=== PATIENT | male | born 1960 | race Caucasian/White ===

== ENCOUNTER 2017-09-24 18:41 | Emergency (ER) | payer OTHER ==
[2017-09-24] MEDS ORDERED: ONDANSETRON 4 MG/2 ML VIAL IVP STA (19:25)
[2017-09-24] MEDS ORDERED: SODIUM CHLORIDE 0.9% 1,000 ML IV ONE (19:25)
[2017-09-24] MEDS ORDERED: RX INFO: IV CONTRAST WAS GIVEN 1 EACH MISC MISCELLANE PRN (19:25)
--- NOTE | 2017-09-24 19:38 | ED ---
General Adult HPI - General Chief complaint: Abdominal Pain Stated complaint: Back Pain Time Seen by Provider: 09/24/17 19:09 Source: patient Mode of arrival: ambulatory Limitations: no limitations - History of Present Illness Initial comments: Patient is a 56-year-old male who presents with a chief complaint of back pain, abdominal pain, nausea, diarrhea for 3 weeks. The patient states that he has chronic back pain secondary to arthritis however this pain is different. The patient states that he goes to the bathroom and had loose stools about 3 times a day. He admits to seeing blood in his stool. He characterizes the pain as a dull but intense ache. He cannot identify any aggravating or alleviating factors. Patient states that his pain is better when he sleeps. He denies any fevers though he has admit that he aches up with wet bedsheets. The patient is a daily drinker. He states he drinks about a pint a day. Patient is also a heavy smoker. Patient's last colonoscopy was 6 years ago, and was reportedly normal at that time. - Related Data Home Medications Medication Instructions Recorded Confirmed Cyclobenzaprine [Flexeril] 10 mg PO HS 09/24/17 09/24/17 Levofloxacin [Levaquin] 500 mg PO HS 09/24/17 09/24/17 Previous Rx's Medication Instructions Recorded Dicyclomine [Bentyl] 20 mg PO QID #20 tablet 09/24/17 Allergies Allergy/AdvReac Type Severity Reaction Status Date / Time No Known Allergies Allergy Verified 09/24/17 19:06 Review of Systems ROS Statement: Those systems with pertinent positive or pertinent negative responses have been documented in the HPI. ROS Other: All systems not noted in ROS Statement are negative. Constitutional: Reports: weight change, night sweats Eyes: Denies: vision change ENT: Denies: ear pain, throat pain Respiratory: Reports: cough Cardiovascular: Denies: chest pain, palpitations Endocrine: Reports: fatigue Gastrointestinal: Reports: abdominal pain, nausea Genitourinary: Denies: dysuria, discharge Musculoskeletal: Reports: back pain Past Medical History Past Medical History: Osteoarthritis (OA) History of Any Multi-Drug Resistant Organisms: None Reported Past Surgical History: No Surgical Hx Reported, Joint Replacement Additional Past Surgical History / Comment(s): hip arthroscopy on knee Past Anesthesia/Blood Transfusion Reactions: No Reported Reaction Past Psychological History: No Psychological Hx Reported Smoking Status: Current every day smoker Past Alcohol Use History: Daily Past Drug Use History: None Reported - Past Family History Father Family Medical History: Cancer Additional Family Medical History / Comment(s): LUNG AND STOMACH CANCER Daughter(s) Family Medical History: Cancer Mother Family Medical History: Cancer Additional Family Medical History / Comment(s): LUNG General Exam Limitations: no limitations General appearance: alert, in no apparent distress Head exam: Present: atraumatic, normocephalic Eye exam: Present: normal appearance ENT exam: Present: normal exam Neck exam: Present: normal inspection Respiratory exam: Present: normal lung sounds bilaterally. Absent: wheezes Cardiovascular Exam: Present: regular rate, normal rhythm GI/Abdominal exam: Present: soft, tenderness, hyperactive bowel sounds. Absent : distended, guarding Rectal exam: Present: deferred Extremities exam: Present: normal inspection Back exam: Present: tenderness Neurological exam: Present: alert, oriented X3, normal gait Psychiatric exam: Present: normal affect, normal mood Skin exam: Present: warm, dry, intact Course Vital Signs 09/24/17 18:55 Temperature 98.1 F Pulse Rate 87 Respiratory 16 Rate Blood Pressure 112/53 O2 Sat by Pulse 97 Oximetry Medical Decision Making - Medical Decision Making Patient presents with chief complaint of abdominal pain, back pain, nausea, and diarrhea for 3 weeks. Patient admits to a 12 pound weight loss over the last year. On initial evaluation, vital signs are stable. Given patient's history and physical examination, there is concern for etiologies such as gallbladder pathology, pancreatitis, or bowel pathology. The patient will be sent for a computed tomography scan of the abdomen and pelvis. Basic abdominal labs were sent. We'll hold on lactate and blood cultures at this time given stable vital signs. EKG performed at 7:56 PM shows normal sinus rhythm with a rate of 82 bpm. EKG is otherwise nonspecific. 9:40 PM Lab evaluation of this patient is grossly unremarkable. CT evaluation of the abdomen and pelvis with IV contrast shows normal anatomy without evidence of acute intra-abdominal process. Chest x-ray shows no acute process. The results were discussed with the patient, he was instructed to follow-up with primary care or return to the emergency department if his symptoms worsen or change in anyway. Prescribed Bentyl for abdominal pain and instructed to continue taking his regular pain medications for back pain. - Lab Data Result diagrams: 09/24/17 19:36 09/24/17 19:36 Lab Results 09/24/17 09/24/17 09/24/17 Range/Units 19:36 19:36 19:36 WBC 7.4 (3.8-10.6) k/uL RBC 4.00 L (4.30-5.90) m/uL Hgb 14.3 (13.0-17.5) gm/dL Hct 42.1 (39.0-53.0) % MCV 105.2 H D (80.0-100.0) fL MCH 35.8 H (25.0-35.0) pg MCHC 34.0 (31.0-37.0) g/dL RDW 11.5 (11.5-15.5) % Plt Count 224 (150-450) k/uL Neutrophils % 56 % Lymphocytes % 31 % Monocytes % 8 % Eosinophils % 2 % Basophils % 1 % Neutrophils # 4.1 (1.3-7.7) k/uL Lymphocytes # 2.3 (1.0-4.8) k/uL Monocytes # 0.6 (0-1.0) k/uL Eosinophils # 0.1 (0-0.7) k/uL Basophils # 0.1 (0-0.2) k/uL Macrocytosis Slight Sodium 140 (137-145) mmol/L Potassium 3.6 (3.5-5.1) mmol/L Chloride 105 (98-107) mmol/L Carbon Dioxide 28 (22-30) mmol/L Anion Gap 7 mmol/L BUN 15 (9-20) mg/dL Creatinine 0.90 (0.66-1.25) mg/dL Est GFR (MDRD) Af Amer >60 (>60 ml/min/1.73 sqM) Est GFR (MDRD) Non-Af >60 (>60 ml/min/1.73 sqM) Glucose 115 H (74-99) mg/dL Calcium 9.7 (8.4-10.2) mg/dL Total Bilirubin 0.6 (0.2-1.3) mg/dL AST 26 (17-59) U/L ALT 26 (21-72) U/L Alkaline Phosphatase 62 (38-126) U/L Total Protein 7.0 (6.3-8.2) g/dL Albumin 4.1 (3.5-5.0) g/dL Lipase 62 (23-300) U/L Urine Color Yellow Urine Appearance Clear (Clear) Urine pH 6.0 (5.0-8.0) Ur Specific [place] 1.016 (1.001-1.035) Urine Protein Negative (Negative) Urine Glucose (UA) Negative (Negative) Urine Ketones Negative (Negative) Urine Blood Negative (Negative) Urine Nitrite Negative (Negative) Urine Bilirubin Negative (Negative) Urine Urobilinogen 2.0 (<2.0) mg/dL Ur Leukocyte Esterase Negative (Negative) Disposition Clinical Impression: Abdominal pain, Diarrhea Disposition: HOME SELF-CARE Condition: Good Instructions: Abdominal Pain (ED) Referrals: Chirag Howard MD [Primary Care Provider] - 1-2 days
[2017-09-24 19:58] LABS: Appearance,Urine Clear (Clear); Bilirubin,Urine Negative (Negative); Glucose,Urine (UA) Negative (Negative); Ketones,Urine Negative (Negative); Leukocyte Esterase,Urine Negative (Negative); Nitrite,Urine Negative (Negative); Protein,Urine Negative (Negative); Specific Gravity,Urine 1.016 (1.001-1.035); UA Billing (MACRO vs. MICRO) CHEM
[2017-09-24 19:59] LABS: Basophils # (A) 0.1 k/uL (0-0.2); Basophils % (A) 1 %; CH 36.1; CHCM 34.4; Eosinophils # (A) 0.1 k/uL (0-0.7); Eosinophils % (A) 2 %; HCT 42.1 % (39.0-53.0); HDW 2.12; HGB 14.3 gm/dL (13.0-17.5); Luc % (Auto) 3; Lymphocytes # (A) 2.3 k/uL (1.0-4.8); Lymphocytes % (A) 31 %; MCH 35.8 pg (25.0-35.0); Macrocytosis Slight; Mean Platelet Volume 6.6; Monocytes # (A) 0.6 k/uL (0-1.0); Monocytes % (A) 8 %; Neutrophils # (A) 4.1 k/uL (1.3-7.7); Neutrophils % (A) 56 %; RDW 11.5 % (11.5-15.5); WBC 7.4 k/uL (3.8-10.6); WBC (Perox) 7.03
[2017-09-24 20:08] LABS: MCV 105.2 fL (80.0-100.0)
[2017-09-24 20:15] LABS: ALT 26 U/L (21-72); AST 26 U/L (17-59); Alkaline Phosphatase 62 U/L (38-126); Anion Gap 7 mmol/L; Blood Urea Nitrogen 15 mg/dL (9-20); Calcium 9.7 mg/dL (8.4-10.2); Carbon Dioxide 28 mmol/L (22-30); Chloride 105 mmol/L (98-107); Glucose 115 mg/dL (74-99); Non-African American GFR(MDRD) >60 (>60 ml/min/1.73 sqM); Potassium 3.6 mmol/L (3.5-5.1); Sodium 140 mmol/L (137-145); Total Bilirubin 0.6 mg/dL (0.2-1.3)
--- NOTE | 2017-09-24 21:06 | XR ---
EXAMINATION TYPE: XR chest 2V DATE OF EXAM: 09/24/2017 COMPARISON: NONE HISTORY: Back pain TECHNIQUE: Frontal and lateral views of the chest are obtained. FINDINGS: Heart and mediastinum are normal. Lungs are clear. Diaphragm is normal. Bony thorax is int act. IMPRESSION: Normal chest
--- NOTE | 2017-09-24 21:17 | CT ---
EXAMINATION TYPE: CT abdomen pelvis w con DATE OF EXAM: 09/24/2017 COMPARISON: NONE HISTORY: Back pain, right flank pain and pelvic pain with gas and loose stools x [address] DLP: 402.20 mGycm Automated exposure control for dose reduction was used. TECHNIQUE: Helical acquisition of images was performed from the lung bases through the pelvis. CONTRAST: Performed without Oral Contrast and with IV Contrast, patient injected with 100 mL of Omnipaque 300. FINDINGS: Lung bases are clear. There is no pleural effusion. Heart size is normal. Liver spleen pancreas appear normal. Gallbladder is contracted. Bile ducts are not dilated. There is no adrenal mass. Kidneys show satisfactory contrast opacification. There is no hydronephrosi s. There is no retroperitoneal adenopathy. I see no intestinal wall thickening. There are no dilated loops. Bladder distends smoothly. There is a right hip prosthesis. There is no sign of appendicitis. There are spondylotic changes in the lumbar spine with moderate narrowing at L4-5 and L5-S1 discs. IMPRESSION: SPONDYLOTIC CHANGES IN THE LUMBAR SPINE. NO EVIDENCE OF RENAL MASS OR OBSTRUCTION. I DO NOT SEE A CAU SE FOR RIGHT FLANK PAIN.
[2017-09-24 22:07] VITALS: BP 124/64; PULSE 95; RESP 18; TEMP 97
== END 2017-09-24 22:05 | disposition home or self-care (01) ==
LOC: EC 18:41
DX: R19.7 Diarrhea, unspecified (principal); M54.9 Dorsalgia, unspecified; G89.29 Other chronic pain; M19.90 Unspecified osteoarthritis, unspecified site; F17.200 Nicotine dependence, unspecified, uncomplicated; Z79.899 Other long term (current) drug therapy
CPT/HCPCS: 99284; 96374; 96361; 36415; 93005; 80053; 87449; 83690; 85025; 81003; 71020; 74177; J2405; Q9967

== ENCOUNTER → 2019-03-06 | Day surgery (SDC) | payer OTHER ==
[2019-03-02 09:31] VITALS: BMI 22.6
[~2019-03-06] MED LIST: LACTATED RINGERS 1,000 ML IV ONE; LACTATED RINGERS 1,000 ML IV SCH; LIDOCAINE 1% 20 ML VIAL (10MG/ML) FOR IV START INTRADERMA PRN; LIDOCAINE 1% INJ 10MG/ML (20 ML MDV) ONE; PROPOFOL 10 MG/ML 20 ML VIAL IV ONE
[2019-03-06 11:15] VITALS: TEMP 97.7
--- NOTE | 2019-03-06 12:36 | P.PCN ---
Date of Procedure: 03/06/19 Procedure(s) Performed: Procedure: Total colonoscopy and biopsy. Preoperative diagnosis: Change in bowel habits. Postoperative diagnosis: Sigmoid diverticulosis with no evidence of acute diverticulitis, strictures, polyps or cancer. Biopsies obtained from the right colon to rule out microscopic colitis. Preparation: HalfLytely prep. Sedation: Was provided by anesthesia. Brief clinical history: The patient a 58-year-old male who is scheduled for this evaluation because of change in bowel habits with frequent bowel movements for the last year or so. He has occasional blood on the stools. His last colonoscopy was around 7 years ago. There is no history of abdominal pains or anemia. Procedure: With the patient on his left lateral decubitus position and after informed consent and adequate sedation, the perianal area was inspected and it did not show any fissures or fistulas. There were no masses felt on digital rectal examination. The Olympus CFH 190L video colonoscope was then inserted in the rectum in the usual fashion and advanced to the cecum. There were several diverticular orifices seen scattered in the sigmoid with no evidence of acute diverticulitis or strictures. The mucosa appeared healthy. No polyps or tumors were seen. I obtained biopsies from the right colon to rule out microscopic or collagenous colitis. I retroflexed the endoscope in the rectum before the endoscope was withdrawn. Low-grade internal hemorrhoids were noted with no evidence of bleeding. The patient tolerated the procedure well. Plan: The patient was reassured. Discussed dietary measures. Will await pathology results. For screening for colon cancer, I am recommending repeat exam in 10 years. He will follow up with you as planned and I will be happy to see in the office if his symptoms persist.
[2019-03-06 12:44] VITALS: BP 113/72; PULSE 66; RESP 18
== END | disposition home or self-care (01) ==
LOC: ORWHC2ENDO 10:59
DX: K57.30 Diverticulosis of large intestine without perforation or abscess without bleeding (principal); K64.8 Other hemorrhoids; F17.210 Nicotine dependence, cigarettes, uncomplicated; Z96.641 Presence of right artificial hip joint; J44.9 Chronic obstructive pulmonary disease, unspecified; M19.90 Unspecified osteoarthritis, unspecified site
CPT/HCPCS: 88305; 45380; J2001; J2704

== ENCOUNTER 2019-04-29 00:25 | Emergency (ER) | payer OTHER ==
[2019-04-29] MEDS ORDERED: MORPHINE SULFATE 4 MG/ML SYRINGE IVP STA (00:51)
[2019-04-29] MEDS ORDERED: ASPIRIN 81 MG PO STA (00:54)
[2019-04-29] MEDS ORDERED: SODIUM CHLORIDE 0.9% 1,000 ML IV STA (00:54)
--- NOTE | 2019-04-29 01:00 | ED ---
General Adult HPI - General Chief complaint: Chest Pain Stated complaint: chest pain Time Seen by Provider: 04/29/19 00:37 Source: patient, family Mode of arrival: ambulatory Limitations: no limitations - History of Present Illness Initial comments: Dictation was produced using [employer] dictation software. please excuse any grammatical, word or spelling errors. Chief Complaint: 58-year-old male presents with sharp chest pain. History of Present Illness: 58-year-old male. He states that he's been getting progressive chest pain since today. Patient is recently diagnosed COPD. Patient denies any cardiac disease. States that he began noticing some discomfort to his chest starting yesterday. States that he woke this morning his pain was slightly worse compared to the night before. Told today his symptoms have been more progressive. States that his pain is located to the epigastric substernal region. States that it's worse with deep inspiration and when lying flat. States that the pain is severe and sharp in nature. Denies any radiation to the shoulders or jaw. Does report that the pain is so severe it caused him to be diaphoretic. Patient feels slightly nauseous however no vomiting. Denies any diarrhea. The ROS documented in this emergency department record has been reviewed and confirmed by me. Those systems with pertinent positive or negative responses have been documented in the HPI. All other systems are other negative and/or noncontributory. PHYSICAL EXAM: General Impression: Alert and oriented x3, acute distress secondary to pain, diaphoretic HEENT: Normocephalic atraumatic, extra-ocular movements intact, pupils equal and reactive to light bilaterally, mucous membranes moist. Cardiovascular: Heart regular rate and rhythm, S1&S2 audible, no murmurs, rubs or gallops Chest: Lungs clear to auscultation bilaterally, no rhonchi, no wheeze, no rales Abdomen: Bowel sounds present, abdomen soft, non-tender, non-distended, no organomegaly Musculoskeletal: Pulses present and equal in all extremities, no peripheral edema Motor: no focal deficits noted Neurological: CN II-XII grossly intact, no focal motor or sensory deficits noted Skin: Intact with no visualized rashes ED course: 58-year-old male. He presents today with severe chest pain. Patient pain is atypical with slight typical features. Upon arrival shows blood pressure 90/54, heart rate of 107. Patient's history is consistent with pericarditis given that he has worsening pain that's more apparent when lying flat compared to when leaning forward. Patient however does have multiple cardiac risk factors including tobacco use and age. EKG was obtained showing ST segment elevations to inferior leads and the precordial leads. There is evidence of VT depression. Given the patient has risk factors and appears very uncomfortable patient case was discussed with Dr. Gardner. He will review the EKG see if he agrees that it's not a STEMI. Tcctc-[id number] bedside ultrasound did not reveal any pericardial effusion. Dr. Gardner reviewed EKG and agrees that patient's EKG suggestive of pericarditis instead of ST segment elevation [place].Laboratory evaluation obtained. CBC, coag panel unremarkable. D-dimer is 1. 46. Metabolic panel is unremarkable. Troponins negative. EtOH S is obtained given that patient had atypical chest pain and elevated d-dimer. No sick ingestion of PE or aortic dissection. He does not appear to be any pericardial effusion. Patient given morphine. Patient reports that his symptoms are nonexistent. Patient's clinical presentation consistent with pericarditis. At this point it is unclear what caused this given the patient denies any recent viral illness. Patient does not have a history of GI bleed or kidney disease. Patient is appropriate for NSAIDs. He is told that he should take 600 mg every 8 hours for 7-10 days. Patient given outpatient follow-up with cardiology for outpatient management pericarditis. - Related Data Home Medications Medication Instructions Recorded Confirmed No Known Home Medications 03/02/19 03/02/19 Allergies Allergy/AdvReac Type Severity Reaction Status Date / Time No Known Allergies Allergy Verified 03/02/19 09:15 Review of Systems ROS Statement: Those systems with pertinent positive or pertinent negative responses have been documented in the HPI. ROS Other: All systems not noted in ROS Statement are negative. Past Medical History Past Medical History: COPD, Osteoarthritis (OA), Pneumonia Additional Past Medical History / Comment(s): Blood in stool, frequent bowel movements 5-6 per day X last 1 to 1 1/2 yrs. Hx broncitis numerous times, pneumonia. History of Any Multi-Drug Resistant Organisms: None Reported Past Surgical History: Joint Replacement, Orthopedic Surgery Additional Past Surgical History / Comment(s): Right hip replacement, left knee surgery, vasectomy, colonoscopy. Past Anesthesia/Blood Transfusion Reactions: No Reported Reaction Past Psychological History: No Psychological Hx Reported Smoking Status: Current every day smoker Past Alcohol Use History: Daily Past Drug Use History: None Reported - Past Family History Father Family Medical History: Cancer Additional Family Medical History / Comment(s): LUNG AND STOMACH CANCER Daughter(s) Family Medical History: Cancer Additional Family Medical History / Comment(s): Hodgkins Mother Family Medical History: Cancer Additional Family Medical History / Comment(s): LUNG CANCER. General Exam Limitations: no limitations Course Vital Signs 04/29/19 04/29/19 04/29/19 00:27 00:55 01:16 Temperature 98.3 F Pulse Rate 107 H 77 Respiratory 19 24 20 Rate Blood Pressure 98/54 100/63 O2 Sat by Pulse 99 97 Oximetry 04/29/19 02:00 Temperature Pulse Rate 71 Respiratory 18 Rate Blood Pressure 95/67 O2 Sat by Pulse 98 Oximetry Medical Decision Making - Lab Data Result diagrams: 04/29/19 00:41 04/29/19 00:41 Lab Results 04/29/19 04/29/19 04/29/19 Range/Units 00:41 00:41 00:41 WBC 9.4 (3.8-10.6) k/uL RBC 4.03 L (4.30-5.90) m/uL Hgb 13.8 (13.0-17.5) gm/dL Hct 41.9 (39.0-53.0) % MCV 104.1 H (80.0-100.0) fL MCH 34.3 (25.0-35.0) pg MCHC 32.9 (31.0-37.0) g/dL RDW 12.2 (11.5-15.5) % Plt Count 257 (150-450) k/uL Neutrophils % 59 % Lymphocytes % 27 % Monocytes % 9 % Eosinophils % 2 % Basophils % 1 % Neutrophils # 5.5 (1.3-7.7) k/uL Lymphocytes # 2.5 (1.0-4.8) k/uL Monocytes # 0.8 (0-1.0) k/uL Eosinophils # 0.2 (0-0.7) k/uL Basophils # 0.1 (0-0.2) k/uL Macrocytosis Slight PT 9.4 (9.0-12.0) sec INR 0.9 (<1.2) APTT 26.5 (22.0-30.0) sec D-Dimer 1.46 H (<0.60) mg/L FEU Sodium 138 (137-145) mmol/L Potassium 4.1 (3.5-5.1) mmol/L Chloride 104 (98-107) mmol/L Carbon Dioxide 24 (22-30) mmol/L Anion Gap 10 mmol/L BUN 14 (9-20) mg/dL Creatinine 0.86 (0.66-1.25) mg/dL Est GFR (CKD-EPI)AfAm >90 (>60 ml/min/1.73 sqM) Est GFR (CKD-EPI)NonAf >90 (>60 ml/min/1.73 sqM) Glucose 96 (74-99) mg/dL Calcium 9.4 (8.4-10.2) mg/dL Magnesium 2.3 (1.6-2.3) mg/dL Total Bilirubin 0.6 (0.2-1.3) mg/dL AST 33 (17-59) U/L ALT 23 (21-72) U/L Alkaline Phosphatase 83 (38-126) U/L Troponin I (0.000-0.034) ng/mL Total Protein 7.3 (6.3-8.2) g/dL Albumin 4.5 (3.5-5.0) g/dL Lipase 84 (23-300) U/L 04/29/19 Range/Units 00:41 WBC (3.8-10.6) k/uL RBC (4.30-5.90) m/uL Hgb (13.0-17.5) gm/dL Hct (39.0-53.0) % MCV (80.0-100.0) fL MCH (25.0-35.0) pg MCHC (31.0-37.0) g/dL RDW (11.5-15.5) % Plt Count (150-450) k/uL Neutrophils % % Lymphocytes % % Monocytes % % Eosinophils % % Basophils % % Neutrophils # (1.3-7.7) k/uL Lymphocytes # (1.0-4.8) k/uL Monocytes # (0-1.0) k/uL Eosinophils # (0-0.7) k/uL Basophils # (0-0.2) k/uL Macrocytosis PT (9.0-12.0) sec INR (<1.2) APTT (22.0-30.0) sec D-Dimer (<0.60) mg/L FEU Sodium (137-145) mmol/L Potassium (3.5-5.1) mmol/L Chloride (98-107) mmol/L Carbon Dioxide (22-30) mmol/L Anion Gap mmol/L BUN (9-20) mg/dL Creatinine (0.66-1.25) mg/dL Est GFR (CKD-EPI)AfAm (>60 ml/min/1.73 sqM) Est GFR (CKD-EPI)NonAf (>60 ml/min/1.73 sqM) Glucose (74-99) mg/dL Calcium (8.4-10.2) mg/dL Magnesium (1.6-2.3) mg/dL Total Bilirubin (0.2-1.3) mg/dL AST (17-59) U/L ALT (21-72) U/L Alkaline Phosphatase (38-126) U/L Troponin I <0.012 (0.000-0.034) ng/mL Total Protein (6.3-8.2) g/dL Albumin (3.5-5.0) g/dL Lipase (23-300) U/L Disposition Clinical Impression: Pericarditis Disposition: HOME SELF-CARE Instructions (If sedation given, give patient instructions): Acute Pericarditis (ED) Additional Instructions: Ibuprofen 600mg every 8 hours for 7 to 10 days, followed by tapering during a period of 3 to 4 weeks Is patient prescribed a controlled substance at d/c from ED?: No Referrals: Javier Gardner MD [STAFF PHYSICIAN] - 1-2 days Time of Disposition: 03:06
[2019-04-29 01:05] LABS: Basophils # (A) 0.1 k/uL (0-0.2); Basophils % (A) 1 %; Eosinophils # (A) 0.2 k/uL (0-0.7); Eosinophils % (A) 2 %; HCT 41.9 % (39.0-53.0); HGB 13.8 gm/dL (13.0-17.5); Lymphocytes # (A) 2.5 k/uL (1.0-4.8); Lymphocytes % (A) 27 %; MCH 34.3 pg (25.0-35.0); MCHC 32.9 g/dL (31.0-37.0); MCV 104.1 fL (80.0-100.0); Macrocytosis Slight; Mean Platelet Volume 6.9; Monocytes # (A) 0.8 k/uL (0-1.0); Monocytes % (A) 9 %; Neutrophils # (A) 5.5 k/uL (1.3-7.7); Neutrophils % (A) 59 %; Platelet Count 257 k/uL (150-450); RBC 4.03 m/uL (4.30-5.90); RDW 12.2 % (11.5-15.5); WBC 9.4 k/uL (3.8-10.6)
--- NOTE | 2019-04-29 01:13 | XR ---
EXAM: XR Chest, 1 View CLINICAL HISTORY: ITS.REASON XR Reason: chest pain TECHNIQUE: Frontal view of the chest. COMPARISON: No relevant prior studies available. FINDINGS: Lungs: No consolidation. Pleural space: Unremarkable. No pneumothorax. Heart: Unremarkable. No cardiomegaly. Mediastinum: Unremarkable. Bones/joints: Unremarkable. IMPRESSION: No evidence of acute pulmonary disease
[2019-04-29 01:18] LABS: INR 0.9 (<1.2); Partial Thromboplastin Time 26.5 sec (22.0-30.0); Prothrombin Time 9.4 sec (9.0-12.0)
[2019-04-29 01:20] LABS: ALT 23 U/L (21-72); AST 33 U/L (17-59); African American GFR (CKD) >90 (>60 ml/min/1.73 sqM); Albumin 4.5 g/dL (3.5-5.0); Alkaline Phosphatase 83 U/L (38-126); Anion Gap 10 mmol/L; Blood Urea Nitrogen 14 mg/dL (9-20); Calcium 9.4 mg/dL (8.4-10.2); Carbon Dioxide 24 mmol/L (22-30); Chloride 104 mmol/L (98-107); Glucose 96 mg/dL (74-99); Lipase 84 U/L (23-300); Magnesium 2.3 mg/dL (1.6-2.3); Potassium 4.1 mmol/L (3.5-5.1); Sodium 138 mmol/L (137-145); Total Bilirubin 0.6 mg/dL (0.2-1.3); Total Protein 7.3 g/dL (6.3-8.2)
[2019-04-29 01:23] LABS: D-Dimer 1.46 mg/L FEU (<0.60)
[2019-04-29 02:11] VITALS: RESP 18
--- NOTE | 2019-04-29 02:49 | CT ---
EXAM: CT Angiography Chest With Intravenous Contrast CLINICAL HISTORY: ITS.REASON CT Reason: Pain TECHNIQUE: Axial computed tomographic angiography images of the chest with intravenous contrast using pulmonary embolism protocol. CTDI is 6 mGy and DLP is 298.8 mGy-cm. This CT exam was performed using one or more of the following dose reduction techniques: automated exposure control, adjustment of the mA and/or kV according to patient size, and/or use of iterative reconstruction technique. MIP reconstructed images were created and reviewed. COMPARISON: No relevant prior studies available. FINDINGS: Pulmonary arteries: No pulmonary embolism. Aorta: No dissection. No aneurysm. Lungs: Upper lobe emphysema. Scarring to the medial right upper lobe. Bronchial wall thickening suggesting bronchitis.. Pleural space: Unremarkable. No significant effusion. No pneumothorax. Heart: No significant pericardial effusion. Bones/joints: No acute fracture. No dislocation. Soft tissues: Unremarkable. Lymph nodes: Unremarkable. No enlarged lymph nodes. IMPRESSION: No PE or aortic dissection. Emphysema and bronchitis.
[2019-04-29] MEDS ORDERED: IBUPROFEN 800 MG TAB PO STA (03:04)
[2019-04-29 03:19] VITALS: BP 98/70; PULSE 70; TEMP 97
== END 2019-04-29 03:18 | disposition home or self-care (01) ==
LOC: EC 00:25
DX: I31.9 Disease of pericardium, unspecified (principal); R79.89 Other specified abnormal findings of blood chemistry; R11.0 Nausea; R61 Generalized hyperhidrosis; M19.90 Unspecified osteoarthritis, unspecified site; F17.200 Nicotine dependence, unspecified, uncomplicated; Z87.09 Personal history of other diseases of the respiratory system; Z87.01 Personal history of pneumonia (recurrent); Z96.641 Presence of right artificial hip joint
CPT/HCPCS: 36415; 93005; 85379; 80053; 83690; 83735; 84484; 85025; 85610; 85730; 71045; 71275; 99285; 96374; 96361 ×2; J2270; Q9967

== ENCOUNTER → 2020-07-23 | Outpatient (CLI) | payer OTHER ==
--- NOTE | 2020-07-23 08:32 | US ---
EXAMINATION TYPE: US carotid duplex BILAT DATE OF EXAM: 07/23/2020 COMPARISON: NONE CLINICAL HISTORY: 59-year-old male R42 Dizziness and giddiness. Pain in head and dizziness. TECHNIQUE: Carotid duplex ultrasound examination. Indirect Doppler criteria was utilized. FINDINGS: EXAM MEASUREMENTS: RIGHT: Peak Systolic Velocity (PSV) cm/sec ----- Right CCA: 94.8 ----- Right ICA: 123.0 ----- Right ECA: 105 ICA/CCA ratio: 1.2 RIGHT: End Diastole cm/sec ----- Right CCA: 26.6 ----- Right ICA: 42.9 ----- Right ECA: 23.6 LEFT: Peak Systolic Velocity (PSV) cm/sec ----- Left CCA: 133 ----- Left ICA: 105 ----- Left ECA: 81.5 ICA/CCA ratio: .8 LEFT: End Diastole cm/sec ----- Left CCA: 39 ----- Left ICA: 35.3 ----- Left ECA: 18.1 VERTEBRALS (direction of flow): Right Vertebral: Antegrade Left Vertebral: Antegrade Rhythm: Normal No significant stenosis seen IMPRESSION: No hemodynamically significant internal carotid artery stenosis on either side. Criteria for Assigning % of Stenosis / Diameter reduction (Estimation based on the indirect measurements of the internal carotid artery velocities (ICA PSV). 1. Normal (no stenosis)=ICA PSV < 125 cm/s: ratio < 2.0: ICA EDV<40 cm/s. 2. Less than 50% stenosis=ICA PSV < 125 cm/s: ratio < 2.0: ICA EDV<40 cm/s. 3. 50 to 69% stenosis=ICA PSV of 125 to 230 cm/s: ration 2.0 ? 4.0: ICA EDV 40-100 cm/s. 4. Greater than 70% stenosis to near occlusion= ICA PSV > 230 cm/s: ratio > 4.0: ICA EDV > 100 cm/s. 5. Near occlusion= ICA PSV velocities may be low or undetectable: variable ratio and ICA EDV. 6. Total occlusion=unable to detect flow.
== END | disposition home or self-care (01) ==
LOC: RADUSWWP 07:39
PROVIDERS: ATTEND Psychiatry & Neurology Neurology
DX: R42 Dizziness and giddiness (principal); H53.8 Other visual disturbances
CPT/HCPCS: 93880

== ENCOUNTER → 2020-07-23 | Outpatient (CLI) | payer OTHER | END | disposition home or self-care (01) | LOC: LABPAT 07:43 | PROVIDERS: ATTEND Orthopaedic Surgery | DX: Z01.812 Encounter for preprocedural laboratory examination (principal) | CPT/HCPCS: 87070 ==

== ENCOUNTER 2020-08-08 05:48 | Day surgery (SDC) | payer OTHER ==
[2020-08-05 11:22] VITALS: BMI 19.9
--- NOTE | 2020-08-07 15:56 | HP ---
HISTORY AND PHYSICAL DATE OF SURGERY: 08/08/2020 Cristian Farley is a 59-year-old patient seen with symptomatic left knee osteoarthritis. We discussed options for treatment. He elected to proceed with left total knee arthroplasty. Consent regarding the procedure was obtained. Medical clearance was provided by Dr. Howard. PAST MEDICAL HISTORY: Noncontributory. PAST SURGICAL HISTORY: Noncontributory. DAILY MEDICATIONS: Ibuprofen. ALLERGIES: NONE. SOCIAL HISTORY: He smokes one pack of cigarettes daily. PHYSICAL EVALUATION HIS LEFT KNEE: His range of motion is negative 4/5 to 120. Mild effusion. Tenderness along the medial and lateral joint lines. Crepitus along the medial and patellofemoral compartments. Pain with patellofemoral compression. Painless rotation of the hip. Distal neurovascular exam is intact. RADIOGRAPHS: Radiographs of the left knee reveal severe osteoarthritic changes. IMPRESSION: 1. Left knee osteoarthritis. 2. Tobacco use. PLAN: Left total knee arthroplasty. MMODL / IJN: [id number] /
[~2020-08-08 05:48] MED LIST changes: +ACETAMINOPHEN TAB 500 MG TAB PO ONE; +DEXAMETHASONE SOD PHOSPHATE 10 MG/ML 1 ML VIAL IV ONE; -LACTATED RINGERS 1,000 ML IV ONE; -LIDOCAINE 1% 20 ML VIAL (10MG/ML) FOR IV START INTRADERMA PRN; -LIDOCAINE 1% INJ 10MG/ML (20 ML MDV) ONE; +MELOXICAM 7.5 MG TAB PO ONE; +MIDAZOLAM 2 MG/2 ML VIAL IV PRN; +ONDANSETRON 4 MG/2 ML VIAL IVP ONE; -PROPOFOL 10 MG/ML 20 ML VIAL IV ONE; +TRANEXAMIC ACID 1,000 MG in SODIUM CHLORIDE 0.9% 100 ML IVPB ONE
[2020-08-08] MEDS ORDERED: ROPIVACAINE 246.25 MG, EPINEPHrine 0.5 MG, KETOROLAC 30 MG, cloNIDine HCL/PF 80 MCG, WA... MISCELLANE ONE ×5 (06:00)
[2020-08-08 06:16] VITALS: TEMP 98.1
[2020-08-08] MEDS ORDERED: LIDOCAINE 1% (10MG/ML) FOR IV START INTRADERMA ONE (06:20)
[2020-08-08 06:24] LABS: Glucose,Whole Blood 103 mg/dL (75-99)
[2020-08-08] MEDS ORDERED: MIDAZOLAM 2 MG/2 ML VIAL IV ONE (06:55)
[2020-08-08] MEDS ORDERED: fentaNYL (PF) 50 MCG/ML 2 ML AMP ONE (07:27)
[2020-08-08] MEDS ORDERED: LIDOCAINE 1% INJ 10MG/ML (20 ML MDV) ONE (07:27)
[2020-08-08] MEDS ORDERED: HYDROmorphone (PF) 1 MG/ML ONE (07:27)
[2020-08-08] MEDS ORDERED: TRANEXAMIC ACID 1,000 MG/10 ML VIAL ONE (07:27)
[2020-08-08] MEDS ORDERED: PROPOFOL 10 MG/ML 20 ML VIAL IV ONE (07:27)
[2020-08-08] MEDS ORDERED: SUCCINYLCHOLINE CHLORIDE 100 MG/5 ML SYR IV ONE (07:27)
[2020-08-08] MEDS ORDERED: SODIUM CHLORIDE 0.9% 100 ML BAG ONE (07:27)
[2020-08-08] MEDS ORDERED: ceFAZolin 1,000 MG in SODIUM CHLORIDE 0.9% 1,000 ML IRRIGATION ONE (08:01)
--- NOTE | 2020-08-08 08:08 | P.ANPRN ---
Procedure Note - Anesthesia - Nerve Block Performed Left Adductor Canal Infusion Time Out Performed: Yes Date of Procedure: 08/08/20 Procedure Start Time: 06:48 Procedure Stop Time: 07:01 Location of Patient: PreOp Indication: Acute Post-Operative Pain, Requested by Surgeon Sedation Type: Sedate with meaningful contact maintained Preparation: Sterile Prep, Sterile Dressing Position: Supine Catheter: Indwelling Needle Types: [place]unk Needle Gauge: 18 Ultrasound used to visualize needle placement: Yes Ultrasound used to observe medication spread: Yes Injectate: 0.5% Ropivacaine (see comment for volume) (20 ml + decadron 4 mg) Blood Aspirated: No Pain Paresthesia on Injection Noted: No Resistance on Injection: Normal Image Stored and Saved: Yes Events: Uneventful and Well Tolerated
[2020-08-08] MEDS ORDERED: ROPIVACAINE 0.2%-NS ON-Q PUMP 1,090 MG, EMPTY PAIN BALL 1 EACH MISCELLANE PRN ×2 (08:48→09:12)
[2020-08-08] MEDS ORDERED: LACTATED RINGERS 1,000 ML IV ONE ×2 (08:55→09:10)
[2020-08-08] MEDS ORDERED: HYDROcodone/APAP 5-325MG 1 EACH TAB PO PRN ×2 (09:10)
[2020-08-08] MEDS ORDERED: NALOXONE 0.4 MG/ML 1 ML VIAL IV PRN (09:10)
[2020-08-08] MEDS ORDERED: ONDANSETRON 4 MG/2 ML VIAL IVP PRN (09:10)
[2020-08-08] MEDS ORDERED: HYDROmorphone 0.5 MG/0.5 ML SYRINGE IVP PRN ×2 (09:10)
[2020-08-08] MEDS ORDERED: HYDROmorphone 1 MG/ML 1 ML SYRINGE IVP PRN (09:10)
--- NOTE | 2020-08-08 09:10 | P.OP ---
Date of Procedure: 08/08/20 Preoperative Diagnosis: Left knee osteoarthritis Postoperative Diagnosis: Left knee osteoarthritis Procedure(s) Performed: Left total knee arthroplasty Implants: 1. Depuy attune size 6 left cruciate retaining cemented femur 2. Depuy attune size 7 fixed bearing cemented tibial baseplate 3. Depuy attune size 6 fixed bearing cruciate retaining 8mm polythene tibial insert 4. Depuy attune 38 mm all polyethylene cemented patella Anesthesia: GETA, regional (Adductor canal catheter), local Surgeon: Alfonzo Yoon Saw Handle Assembler #1: Prasanna Ladd Estimated Blood Loss (ml): 30 Pathology: other (Bone) Condition: stable Disposition: PACU Indications for Procedure: 59-year-old patient seen with symptomatic left knee osteoarthritis. After treatment options were discussed, he elected to proceed with total knee arthroplasty. Operative Findings: See description of procedure Description of Procedure: Patient was taken to the operative suite after having an adductor canal catheter placed by the department of anesthesia. Patient underwent a general anesthetic by the department of anesthesia. Patient was given preoperative IV intake antibiotics and TXA. A well-padded tourniquet was placed about the left lower extremity. The lower extremity was then prepped and draped in the normal sterile orthopedic fashion. The extremity was elevated, a tourniquet was insufflated to 300. A standard anterior incision was made sharply through skin. Dissection was taken down through the subcutaneous soft tissues down to the extensor mechanism. A medial arthrotomy was performed, patella was everted and knee was flexed. There was advanced osteoarthritis noted. I introduced my distal intramedullary femoral drill. I then introduced the distal femoral cutting jig. Murphy MULLINS secured the cutting jig with 2 pins. I held retractors in position while Murphy MULLINS performed the distal femoral resection through the guide area we now removed her distal femoral cutting guide. We now placed our 4-in-1 femoral cutting block and positioned and it was secured with 2 pins by Murphy MULLINS while I held the block in position. The distal femoral finishing was now completed. A proximal tibial cutting guide was positioned. I held the guide in the appropriate position with both hands well Murphy MULLINS inserted stabilizing pins into the guide. Proximal tibial cut w as made. We now placed a trial femoral component into position, along with an appropriate size tibial tray and insert. We now took the knee through range of motion and had full extension good flexion and good overall soft tissue balance noted. The patella was everted and stabilized with 2 towel clips held by Murphy MULLINS while I performed a flush with patellar quad tendon utilizing a fresh sawblade. We templated the patella, appropriate drill holes were made. An appropriate trial patella was positioned, knee was taken through full range of motion with the patella tracking very nicely. The trial patella was removed. Drill holes were made through the femoral component. All trial components were removed after marking off the appropriate rotation of the tibia. Retractors were now positioned along the proximal tibia. An appropriate keel punch was made with the appropriate size tibial guide by myself on Murphy MULLINS assisted by holding retractors. At this point appropriate size implants were chosen and opened. The joint was irrigated copiously with pulse lavage mechanical irrigation. The posterior capsule was infiltrated with local analgesic. The wound was irrigated with pulse lavage mechanical irrigation. We mixed antibiotic methylmethacrylate. We placed the knee into flexion. We placed multiple retractors assisted by Murphy MULLINS to expose the proximal tibia. Once the methyl methacrylate was ready, the tibial component was cemented into place removing any excess methylmethacrylate form by both myself and Murphy MULLINS. The femoral component was cemented into place removing the removing any excess methylmethacrylate performed by both myself and Murphy MULLINS. We then inserted the appropriate size polyethylene tibial insert. We made sure that it was locked into position. We took the knee into full extension, and then back in a flexion making sure we had removed any excess methylmethacrylate. The patellar component was then cemented down and secured with clamp. Excess methylmethacrylate removed. We kept the knee in full extension, patellar clamp in position until methylmethacrylate had hardened. Once it had hardened the patellar clamp was removed. The knee was taken through full range of motion. The patella tracked nicely. There was good soft tissue balancing. The tourniquet was now released. Additional hemostasis was achieved via electrocautery. A second gram of TXA was given. The wound again was irrigated with pulse lavage mechanical irrigation. The superficial soft tissues were infiltrated local analgesic. The extensor mechanism was repaired with Vicryl. We checked the repair with range of motion and it was stable. The subcutaneous soft tissues were repaired with Vicryl in layers. The skin was approximated wit h pernio/Dermabond. Sterile dressings were applied followed by loose web roll and Sukhwinder bandage. The patient was transferred to a bed, and taken to recovery in stable and satisfactory condition. Murphy MULLINS assisted with this complex procedure.
[2020-08-08] MEDS: HYDROmorphone 0.5 MG/0.5 ML SYRINGE IVP PRN ×4 (09:37→10:40)
--- NOTE | 2020-08-08 10:14 | XR ---
EXAMINATION TYPE: XR knee limited LT DATE OF EXAM: 08/08/2020 COMPARISON: NONE TECHNIQUE: Two views submitted HISTORY: Post op FINDINGS: There is a prosthetic knee in near anatomic alignment. There is soft tissue edema and emphysema. IMPRESSION: 1. Postoperative change. Appears in near-anatomic alignment
[2020-08-08] MEDS ORDERED: HYDROcodone/APAP 5-325MG 1 EACH TAB PO ONE (11:45)
[2020-08-08 14:40] VITALS: RESP 18
[2020-08-08 14:41] VITALS: BP 122/77; PULSE 99
== END 2020-08-08 14:40 | disposition home health service (06) ==
LOC: OR 05:48
PROVIDERS: ATTEND Orthopaedic Surgery
DX: M17.12 Unilateral primary osteoarthritis, left knee (principal); K08.89 Other specified disorders of teeth and supporting structures; J44.9 Chronic obstructive pulmonary disease, unspecified; F17.210 Nicotine dependence, cigarettes, uncomplicated; Z79.1 Long term (current) use of non-steroidal anti-inflammatories (NSAID); Z79.899 Other long term (current) drug therapy; Z96.641 Presence of right artificial hip joint; Z98.890 Other specified postprocedural states
CPT/HCPCS: 97110; 97161; 64448; 76942; 88300; 73560; 27447; C1776; C1713; J2250; J0171; J1100; J0690 ×2; J2405; J2001; J3010; J1885; J1170 ×2; J2795 ×2; J0330; J2704; J0735

== ENCOUNTER → 2022-04-17 | Outpatient (CLI) | payer BC, OTHER ==
--- NOTE | 2022-04-19 21:04 | CT ---
EXAMINATION TYPE: CT cervical spine wo con CT DLP: 410.80 mGycm, Automated exposure control for dose reduction was used. DATE OF EXAM: 04/17/2022 4:42 PM COMPARISON: None. CLINICAL INDICATION:Male, 61 years old with history of M47.22 OTHER SPONDYLOSIS WITH RADICULOPATHY, C ervical Spondylosis TECHNIQUE: Axial CT images from the skull base to the inferior aspect of T2 we obtained without intra venous contrast. Coronal and sagittal reformatted images were also reviewed. FINDINGS: Fracture: None. Osseous structures: Multilevel degenerative disc disease changes with endplate spurring and disc oste ophyte complex's. Vertebral alignment: There is straightening of the cervical alignment. Spinal canal/Neural Foramina: mild narrowing of the spinal canal at C5-C6 secondary to disc osteophyt ic complex.. Facet joint uncovertebral joint arthropathy scattered throughout the cervical spine with varying degrees of neural foraminal stenosis. This is worse at C5-C6 and C6-C7 on the left with mild neural foraminal stenosis. Neck soft tissues: Prevertebral soft tissues are within normal limits. Other: The airway is patent. There is centrilobular and paraseptal emphysema changes in the lung apic es. Ossification of the nuchal ligament is present. Apical scarring of the lung apices. IMPRESSION: 1. No evidence of cervical spine fracture. 2. Mild multilevel degenerative disc disease with mild narrowing of the spinal canal at C5 and C6 sec ondary to disc osteophyte complex with mild left C5-C6 and C6-C7 neural foraminal stenosis. 3. Emphysema changes within the lungs.
== END | disposition home or self-care (01) ==
LOC: RADCTMAIN 16:19
PROVIDERS: ATTEND Orthopaedic Surgery
DX: M47.22 Other spondylosis with radiculopathy, cervical region (principal)
CPT/HCPCS: 72125

== ENCOUNTER → 2022-04-23 | Outpatient (CLI) | payer BC, OTHER ==
--- NOTE | 2022-04-23 17:38 | MR ---
EXAMINATION TYPE: MR cervical spine wo con DATE OF EXAM: 04/23/2022 COMPARISON: 07/09/2020 HISTORY: 61-year-old male M4 7.22, Neck pain and bilateral arm numbness, headaches. TECHNIQUE: Multiplanar, multisequence images of the cervical spine were acquired without contrast. FINDINGS: No craniocervical junction abnormality, predental space widening, or prevertebral soft tissue swellin g. There is moderate degenerative disc disease C5-C7 levels and mild to moderate C4-C5 where a degenerat ed, desiccated, narrowed, and bulging discs. There is extensive associated edematous Modic type II en dplate change. Reversal of the normal cervical lordosis. Degenerative grade 1 anterolisthesis of C3-C4, C4-C5. Multilevel hypertrophic facet and uncovertebral joint arthropathy. At C2-C3, no spinal canal or neuroforaminal stenosis. At C3-C4, hypertrophic facet and uncovertebral joint arthropathy with grade 1 anterolisthesis. Change s result in a moderate left neuroforaminal stenosis. No significant spinal canal stenosis. At C4-C5, there is advanced hypertrophic facet arthropathy, right greater than left with mild uncover tebral joint arthropathy. Disc osteophyte complex is present. Mild overall spinal canal stenosis with abutment and slight flattening of the ventral cord. Dorsal CSF signal is maintained. Changes result in moderate right neuroforaminal stenosis. At C5-C6, bilateral uncovertebral joint arthropathy and broad-based disc complex. Changes result in m ild to moderate spinal canal stenosis, slightly progressed from prior exam. There is abutment and sli ght flattening of the ventral cord but no rosas cord compression. Moderate to severe left and moderat e right neuroforaminal stenosis. At C6-C7, broad-based disc osteophyte complex with uncovertebral joint and facet arthropathy. Changes result in moderate left and moderate neural foraminal stenosis. No significant spinal canal stenosis . At C7-T1, hypertrophic facet arthropathy, left greater than right. Mild bilateral neuroforaminal narr owing. Normal course and signal intensity of the cervical spinal cord. IMPRESSION: 1. Moderate disc/endplate degenerative change, greatest from C5 through C7 levels with associated casa matous Modic type II endplate change. Changes have slightly progressed from 2020. 2. Multilevel hypertrophic facet and uncovertebral joint nephropathy. Degenerative grade 1 anterolist hesis C3-C4 and C4-C5. 3. Changes result in [id number] spinal canal stenosis at C5-C6, slightly progressed from prior exam. Abutment and slight flattening of the ventral cord at this level but no rosas cord compression. Mild overall spinal canal stenosis at C4-C5 is similar. 4. Variable bilateral neuroforaminal stenoses as outlined above, moderate to severe on the left at C5 -C6.
== END | disposition home or self-care (01) ==
LOC: RADMRIMAIN 12:16
PROVIDERS: ATTEND Orthopaedic Surgery
DX: M47.22 Other spondylosis with radiculopathy, cervical region (principal)
CPT/HCPCS: 72141

== ENCOUNTER → 2022-06-26 | Outpatient (CLI) | payer BC | END | disposition home or self-care (01) | LOC: LABPAT 09:09 | PROVIDERS: ATTEND Orthopaedic Surgery | DX: Z01.818 Encounter for other preprocedural examination (principal); M47.812 Spondylosis without myelopathy or radiculopathy, cervical region; R00.1 Bradycardia, unspecified | CPT/HCPCS: 87070; 93005 ==

== ENCOUNTER 2022-07-07 05:49 | Inpatient (IN) | payer BC ==
[2022-07-03 14:18] VITALS: BMI 20.3
[~2022-07-07 05:49] MED LIST changes: -ACETAMINOPHEN TAB 500 MG TAB PO ONE; +ACETAMINOPHEN TAB 500 MG TAB PO PRN; -DEXAMETHASONE SOD PHOSPHATE 10 MG/ML 1 ML VIAL IV ONE; +GABAPENTIN 300 MG CAP PO PRN; -LACTATED RINGERS 1,000 ML IV SCH; -MELOXICAM 7.5 MG TAB PO ONE; -MIDAZOLAM 2 MG/2 ML VIAL IV PRN; -ONDANSETRON 4 MG/2 ML VIAL IVP ONE; +ONDANSETRON 4 MG/2 ML VIAL IVP PRN; -TRANEXAMIC ACID 1,000 MG in SODIUM CHLORIDE 0.9% 100 ML IVPB ONE; +TRANEXAMIC ACID IN NACL,ISO-OS 1,000 MG in SALINE 1 100ML.BAG IVPB PRN
[2022-07-07] MEDS ORDERED: MIDAZOLAM 2 MG/2 ML VIAL IV PRN (05:56)
[2022-07-07] MEDS: LACTATED RINGERS 1,000 ML IV SCH (06:24)
--- NOTE | 2022-07-07 06:38 | P.HPOR ---
History of Present Illness H&P Date: 06/26/22 Chief Complaint: Neck pain, UE weakness [facility] History and Physical Date of :[birth year] Age: 61 year Height: 6' Weight: 140 lbs BP:124/70 BMI: 18.99 kg/m2 Occupation: Disabled VAS: 5 CHIEF COMPLAINT: Cervical pain DOI: Chronic DOS: None Duration of current treatment regiment: 1 year HISTORY: Xrays No new xrays taken in office Trauma or injury No Work-Related No Pain description aching, burning. Location posterior diffuse Activity Modification yes , unable to perform bending, lifting, twisting motions regarding the neck. Ambulation and standing gets progressively more difficult throughout the day. Hand Dominance right TREATMENTS COMPLETED: 6 weeks of PT completed? Month and Year of last PT date? in late 2020 Yes How many sessions? 10 Did it help? No Physician directed home exercise completed? Duration of HEP course: current yes , daily without improvements. Medications yes List: Motrin 800mg with temporary improvements. Alternative interventions Chiropractic: No Massage therapy: R.I.C.E: yes , daily without relief. Brace: No Injections No RFA: No SUBJECTIVE: Today the patient returns to the office for a recheck of his cervical spine. Mr. Farley returns to the office for a a pre-operative recheck of their cervical spine. Patient reports continued cervical pain with no known injury or trauma to indicate an exact onset of their symptoms. Overall he notes continued debility due to his ongoing symptoms In addition to their cervicalpain, they do report that it radiates into the right upper extremity , associated with numbness and tingling through the arm and weakness that is significantly impacting his ability to complete his daily tasks. Overall the patient has seen a progressive increase in symptoms since their onset. Mr. Farley symptoms are exacerbated with most ADL's, due to this they notes that it is increasingly difficult for Mr. Farley to complete many of their daily tasks. Patient is having moderate sleep disturbances as well due to their ongoing pain and associated symptoms. Regarding treatments, the patient has previously trialed all abovementioned treatment modalities without any relief of his ongoing symptoms. Patient denies trialing any other modalities at this time. For their symptoms, the patient has been taking Ibuprofen 800mg with moderate/temporary relief of his symptoms. Patient denies taking analgesics/anticoagulants/narcotics/GEMA-analogs. Otherwise the patient denies any f/c/sob/cp, no incision concerns, no bladder or bowel retention/incontinence, no perineal numbness/tingling, and ambulates independently. HPI: Mr. Farley last presented to the office on 04/08/2022 for a recheck of his cervical spine. Since the time of the last appointment the patient reports that he has seen no improvements to his symptoms. Patient continues to complain of severe pain about te cervical region radiating into the bilateral shoulders and right upper extremity. 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 Otherwise he notes that he has continued with the physician recommended home exercise program without improvements as well as Motrin 800mg daily with temporary relief. Overall he denies any significant changes to hi symptoms since the time of the last appointment. Patient denies ny f/c/sob/cp, no bladder or bowel issues, denies any genital numbness or tingling. Additionally, he does present to the office without the us e of any ambulatory aides but does have an antalgic gait, favoring the left lower extremity. Mr. Farley was last seen on 08/25/2021 regarding his cervical pain. Since the time of the last appointment the patient denies any improvements to his symptoms. Patient is taking Motrin 800mg for pain management without any effect but notes that he would like a refill of this as he has run out. Additionally, the patient notes that he is still smoking occasionally, but has cut back significantly since the time of the last appointment. Of note, the patient is planning on leaving for [place] soon and will return in March. At that time he would like to continue treatment but notes that he will not be around to continue care of his neck pain in the [facility]. Otherwise he denies any bladder or bowel issues, denies any genital numbness or tingling. Additionally, he does present to the office without the use of any ambulatory aides but does have an antalgic gait, favoring the left lower extremity. Mr. Farley was last seen on 06/18/2021 regarding his cervical spine. He notes that his pain and symptoms have not changed since his last appointment. Similarly to the prior visit, he was still complaining of upper extremity weakness and radiculopathy on the right side. He noted that his pain is currently a 2/10, taking Motrin daily for this with little effect. Of note, the patient reported that he occasionally does have difficulty with swallowing. He presented without the use of ambulatory aides. Patient was currently trying to stop smoking. Mr. Farley denied any issues with his bowels or incontinence at this time. He was otherwise doing well. 60-year-old male last presented on 04/23/2021 for complaints of cervical spine pain as well as right upper extremity weakness and radiculopathy. The patient stated this been going on for years however over the last 4-5 months is been getting worse. He complained of pain in his right upper extremity as well as numbness and tingling in the upper extremity, stating when he lays back and goes to sleep that it gets worse. Nothing seems to make it better he does rate the pain right now a 2 out of 10 but he did take Motrin. He takes Motrin daily for this. He does smoke about a pack a half a day of cigarettes at this time. He has seen Dr. Castro in the office who wanted injections the patient is very against these at this time. He denied any bowel bladder issues denies any perineal numbness or tingling denies any difficulty with fine motor skills or gait imbalance at that time. The patients' past social, medical, family, surgical history, as well as review of systems, have been reviewed. Please refer to the Neurosurgery History and Physical form that has been scanned in to our electronic medical record system. 16 points review of systems completed and as stated in HPI, all other systems reviewed are negative. Social History: Reviewed, see appropriate section of the chart for details. P3 Social History: Smoking: former smoker P3 Alcohol: socially drinks alcohol P3 Family History: Reviewed, see appropriate section of the chart for details. P2 Past Medical History: Reviewed, see appropriate section of the chart for details. S3Gisnlnp Medications: Rx: ibuprofen 800 mg tablet Ref: 0 PHYSICAL EXAMINATION:Exam repeatd as below General: Awake, alert, appropriate for age, in no acute distress. HEENT: No unusual neck masses around region of lateral neck triangle, thyroid, supraclavicular groove Heart: Regular rate and rhythm, normal S1, S2 and no murmur/gallop. Lungs: Clear to auscultation bilaterally with no use of accessory muscles. Extremities: Skin warm and dry without acute lesions, coloration, temperature, skin intact, no tenderness or erythema Integument: Hairy patches: ABSENT Dorsal skin dimples: ABSENT Cafe au lait spots: ABSENT Surgical incisions: NONE Palpation: Please see Pain drawing on Intake sheet for further detail. Midline spinal tenderness: No E6 Cervical Tenderness: Yes E6 Paralumbar tenderness: No E6 Parathoracic tenderness: No E6 Buttocks tenderness: No E6 Sacroilliac Tenderness: No POSTURAL and MUSCULO-SKELETAL EVALUATION: Coronal Balance: NEUTRAL Recumbent testing: Patient is able to lay flat on back Sagittal Balance: NEUTRAL Shoulder Profile: LEVEL Pelvic Girdle: LEVEL Neck ROM: RESTRICTED Lumbar ROM: UNRESTRICTED Shoulder ROM: Symmetrical Hip ROM: Symmetrical Knee ROM: Symmetrical Hands: Normal appearance, symmetrical Feet: Normal appearance, Symmetrical VASCULAR STATUS : LEFT RIGHT Wrist Pulses INTACT INTACT Pedal Pulses (Dors. pedis & post.tibialis) INTACT INTACT Color NORMAL NORMAL Edema Absent Absent NEUROLOGIC EXAMINATION: Mental Status:Awake and alert, fully oriented, with normal attention, concentration and memory, and fluent, appropriate speech. Cranial Nerves: I: Olfactory not tested. II: Visual acuity normal, no visual field deficit noted with confrontation. III,IV: Normal pupillary reflexes & intact extraocular movements without nystagmus. V,: Intact symmetrical facial sensation. VII: Intact symmetrical facial motor movement VIII: Hearing intact. IX,X: Intact gag, swallow, & normal voice. XI: Sternocleidomastoid, trapezius function intact. XII: Tongue midline with normal movements. L'hermitte's Sign: Negative / absent Spurling'Sign: Absent bilaterally. Cubital percussion test: Absent bilaterally. Valderrama-Tinel sign - Carpal region: Absent bilaterally. Straight Leg Raising: Absent bilaterally. Crossed straight leg raise: negative O8 MOTOR EXAM (0-5/5, N/T) UPPER EXTREMITY Shoulder Abduction Biceps Triceps Wrist Extension Hand Intrinsics Materials Specialist Right 5/5 4+/5 5/5 5/5 5/5 4+/5 Left 5/5 5/5 4+/5 5/5 5/5 5/5 LOWER EXTREMITY Hip Flexion Knee Extension Knee Flexion DF PF EHL FHL Right 5/5 5/5 5/5 5/5 5/5 5/5 5/5 Left 5/5 5/5 5/5 5/5 5/5 5/5 5/5 REFLEXES(0-4/2, NT)Upper ExtremityLower Extremity Right 2 2 Left 2 2 Pathological Reflexes RIGHT LEFT Valderrama's Present Absent Clonus Absent Absent Babinski Absent Absent # Indicates mechanical impairment Muscle appearance: Symmetrical, without signs of atrophy or dystrophy. Sensory system (0-4, N/T) Test type RU NAVIN RL LL Joint-Position 2 2 2 2 Vibration 2 2 2 2 Pain & LT sense 2 2 2 2 Dermatomal Deficit: None None None None Gait and Functional Evaluation: Ambulatory aids: Independent Romberg's test: Intact bilaterally Toe heel walk / heel-toe walk intact while maintaining satisfactory balance? yes Squatting/straightening w/o assistance to a min of 60 degree knee flexion? yes Single leg stance: intact Trendelenburg sign negative bilaterally Hand and finger dexterity intact bilaterally? No Disdiadochokinesis examination negative bilaterally? yes RADIOGRAPHIC STUDIES: XRay taken on 04/23/2021 of Cervical was reviewed by Dr. Perez and indicates: AP lateral flexion extension views of the cervical spine obtained and reviewed in the office today. This demonstrates C4 to C7 spondylosis which is severe with osteophytic formation almost complete disc space collapse. On flexion the patient does have a grade 1 anterolisthesis C4 on C5 which is noted this reduces with extension. Occipital cervical C1 2 joints appear stable he does have a particular was pasta kits which is noted. There are no fractures dislocations other lesions noted. MRI scan from 07/09/2020 of Cervical Spine: There is spondylosis noted from C4 to C7 with C4 to C7 stenosis due to broad- based disc bulges as well as disc herniation. There is right-sided foraminal stenosis at these levels which is noted as well which could account for patient's right upper extremity weakness and radiculopathy. There is no fracture or dislocation. Occipital cervical C1 [address] Cervical spine: IMages reviewed demonstate severe spondylosis from C4-7 with disc collapse, vacuum disc phenomena as well as osteophyte formation anterior and posterior on VB. This contributes to moderate to severe stenosis from C4-7 along with disc herniations, bulges, facet arthrosis. There is flattening of the normal lordosis due to these findings as well. No fractures noted. C0-1 and C1-2 are stable at this time. No lesions. IMPRESSION: It was my pleasure to have seen and examined Cristian. I reviewed the patient's clinical syndrome, physical findings, and imaging studies during the appointment today. It is my impression that the patient has a diagnosis of. 1. C4-7 spondylosis 2. C4-7 stenosis 3. RUE weakness with radiculopathy I outlined the natural course history without intervention and various interventional options. PLAN: Based on my findings I suggest the following course of action: -Advised patient to continue with supplements, health maintenance, and home exercise programs. Patient expressed understanding and will continue with these modalities. I discussed treatment options with the patient, including operative and non- operative options, and they have elected to proceed with the following surgical procedure: C4-C7 ACDF The indications, risks, benefits, and alternatives to surgery were discussed with the patient at length. Specifically (but not limited to) the risks of infection, stiffness, recurrence of symptoms, need for revision surgery, local numbness, neurovascular injury, and blood clots were discussed. The patient's questions were answered. The decision to proceed was made. Consent will be obtained for the procedure. Spine Surgery Risk Review Mr. Farley is presenting for evaluation of cervical pain. It was my pleasure to have seen and examined Mr. Farley. In our visit today we have had a chance to go over subjective complaints, physical examination findings and treatments including the natural course history without intervention and various interventional options. The patients imaging demonstrates: XRay taken on 04/23/2021 of Cervical was reviewed by Dr. Perez and indicates: AP lateral flexion extension views of the cervical spine obtained and reviewed in the office today. This demonstrates C4 to C7 spondylosis which is severe with osteophytic formation almost complete disc space collapse. On flexion the patient does have a grade 1 anterolisthesis C4 on C5 which is noted this reduces with extension. Occipital cervical C1 2 joints appear stable he does have a particular was pasta kits which is noted. There are no fractures dislocations other lesions noted. MRI scan from 07/09/2020 of Cervical Spine: There is spondylosis noted from C4 to C7 with C4 to C7 stenosis due to broad- based disc bulges as well as disc herniation. There is right-sided foraminal stenosis at these levels which is noted as well which could account for patient's right upper extremity weakness and radiculopathy. There is no fracture or dislocation. Occipital cervical C1 2 joints appear stable. On physical exam, Mr. Farley demonstrates right upper extremity radiculopathy with bilateral upper extremity weakness. Patient also demonstrates significantly restricted cervical range of motion. I have explained to the patient that as their condition progresses it will cause further neurological deficits and eventual paralysis. Based on the patients imaging, physical exam, and the rapid progression and disabling nature of their symptoms, at this time I recommend surgery in the form or a: C4-C7 ACDF. I discussed the risk and benefits of this procedure at length with Mr. Farley. The patient and his significant other agreed to considered pursuing the procedure abovementioned. Prior to surgery, she should follow up with her PCP (Cardio, ID, IM etc) for clearance. Questions were invited and answered, and the patient wishes to proceed as outlined below. Currently, I am recommendin. C4-C7 Anterior cervical discectomy and fusion 2.Follow up with PCP for surgical clearance 3.Review of surgical risks and benefits as well as an educational packet on the proposed surgical procedure. Risks: All surgical procedures come with inherent risks, including those related to positioning, anesthesia, intraoperative findings, and postoperative complications. It is important to understand that surgery does not come with any guarantee of a successful outcome as complications and adverse events are always possible. The patient was given a handout in office today discussing the surgical procedure and risks associated with the intervention, both of which were discussed with the patient. These risks include but are not limited to the following: * Experiencing same, different or even worse symptoms in back, neck, arms, or legs compared to before surgery. Requiring further surgery or other forms of treatment presently or at some time in the future at same or other levels of the intended spine surgery. On an extreme but fortunately relatively rare basis severe complication such as blindness, stroke, heart attack, temporary and/or permanent nerve injury, paralysis, coma, or may occur, sometimes without known explan ation. Surgical complications may include but are not limited to risk of infection, fluid accumulation in the surgical dissection site, including a seroma or hematoma, that requires additional surgery, wound drainage, bleeding, new numbness or weakness, vision changes/loss, spinal fluid leakage, non-healing and/or infected incision, headaches, difficulty or inability to swallow, hoarseness, hemopneumothorax, pneumothorax, impotence, retrograde ejaculation, vaginal dryness; injury to nerves, spinal cord, blood vessels, lymphatics or other vital organs (i.e., bowel injury, injury to the great vessels); heterotopic bone formation; complications related to the hardware such as screws, rods, cages including misplaced hardware, device failure, instrumentation at the wrong spine level, hardware fracture/breakage, or hardware loosening; vertebral failure of the spinal column above or below the newly placed hardware; retained surgical instrumentations or devices and the need for further surgery. * Medical risks of the planned spine surgery include but are not limited to generalized Infections to the whole body or local areas outside of the surgical site (sepsis), heart attack, bleeding, anaphylaxis, meningitis, seizure, epilepsy, hearing loss, burn gusman, laceration of the head or other areas of the body, bruising, hypersensitivity of the skin, bladder over distension; allergic reaction; shoulder injury related to positioning; fat, blood and air clots to other areas of the body like heart, lungs, brain; failure of internal organs such as lungs, kidneys, liver and excessive bleeding. If blood transfusions are necessary, note that transfusions may cause intolerance reactions such as anaphylaxis or other complex reactions. Despite best efforts, the results of spine surgery might not heal in terms of bone, soft tissues such as skin, fascia, ligaments, and joints. Additionally, in order to achieve best possible results, spine surgery may be carried out beyond the initially planned levels and involve decompression, fusion including insertion of hardware at levels other than the original intended area of surgical interest change some portions of the procedure in order to ensure the best possible outcomes. With spine surgery and spinal fusion, there are different off label uses of instrumentation (devices, implants and hardware) as well as biological substa nces (bone morphogenic proteins, demineralized bone matrix) as well as using extra bone from allograft sources (i.e. cadaver bone) or autograft (iliac crest bone, ribs, or the spine itself). The patient has been given information about these practices and their inherent risks and benefits. [facility] is an educational center that serves as a training facility for neurosurgical and orthopedic HOME IMPROVEMENT CONTRACTOR and Nursing students. Physician assistants are medically trained surgical providers who function in the outpatient, inpatient, and operating room setting under the direct supervision of the attending surgeon. [facility] has multiple operating rooms with single and overlapping rooms running daily. They currently function under the required guidelines as produced by the [facility] Finance Committee with regards to the overlapping rooms and will continue to comply with changes to this policy as they occur. The requirements include and are complied with as follows: (1) the critical portions of the overlapping rooms will not occur at the same time, (2) the attending physician will be physically present during the critical portions of the procedure and immediately available during the entire case, and (3) a back-up attending is designated should the primary attending not be immediately available. The patient has had a chance to review all the listed information, has been given print outs detailing this information, and has had all his/her questions answered to their satisfaction. It was my pleasure to have seen and examined Mr. Farley. In our visit today we have had a chance to go over my understanding of our patient's current condition, the natural course history without intervention and various interventional options. Questions were invited and answered, and the patient wishes to proceed as outlined above. I have seen and examined the patient for 25 minutes and we have spent more than 50% of the time in repeat and detailed counseling about the patient's condition, its natural course history with out and as much as can be predicted with surgery and re-review of various surgical treatment options. In conclusion, Mr. Farley and his partner requested we proceed with the above suggested surgery and are willing to accept risks and limitations of the suggested surgery as nature of the disease process and our best attempts at treatment for the condition. Thank you again for allowing us to be part of your patient's care. Please don't hesitate to contact me if you have any further questions. Signed and authenticated by: Jose Roberto Merchant [facility]imally [facility]vasive Sp[facility] [address] [address] Past Medical History Past Medical History: COPD, Osteoarthritis (OA), Pneumonia Additional Past Medical History / Comment(s): diverticulitis, hx bronchitis, herniated disk, degenerative disk disease History of Any Multi-Drug Resistant Organisms: None Reported Past Surgical History: Joint Replacement Additional Past Surgical History / Comment(s): Right hip replacement, left knee replacement, vasectomy, colonoscopy., left knee arthroscopy Past Anesthesia/Blood Transfusion Reactions: No Reported Reaction Smoking Status: Former smoker - Past Family History Father Family Medical History: Cancer Additional Family Medical History / Comment(s): LUNG AND STOMACH CANCER Daughter(s) Family Medical History: Cancer Additional Family Medical History / Comment(s): Hodgkins Mother Family Medical History: Cancer Additional Family Medical History / Comment(s): LUNG CANCER. Medications and Allergies Home Medications Medication Instructions Recorded Confirmed Type Ibuprofen 800 mg PO Q8H PRN 07/03/22 07/03/22 History Nicorette Gum (Dose Unknown) 1 piece gum PO DIRECTED PRN 07/03/22 07/07/22 History Allergies Allergy/AdvReac Type Severity Reaction Status Date / Time No Known Allergies Allergy Verified 07/03/22 14:07 Physical Examination Osteopathic Statement: *. No significant issues noted on an osteopathic structural exam other than those noted in the History and Physical/Consult.
[2022-07-07] MEDS ORDERED: HYDROmorphone 0.5 MG/0.5 ML SYRINGE IVP PRN ×2 (07:00→11:00)
[2022-07-07] MEDS ORDERED: SUCCINYLCHOLINE CHLORIDE 200 MG/10 ML VIAL IV ONE (07:25)
[2022-07-07] MEDS ORDERED: HYDROmorphone (PF) 1 MG/ML ONE (07:25)
[2022-07-07] MEDS ORDERED: KETAMINE 10 MG/ML 20 ML VIAL ONE (07:25)
[2022-07-07] MEDS ORDERED: fentaNYL (PF) 50 MCG/ML 2 ML AMP ONE (07:25)
[2022-07-07] MEDS ORDERED: DEXAMETHASONE SOD PHOSPHATE 10 MG/ML 1 ML VIAL ONE (07:25)
[2022-07-07] MEDS ORDERED: LIDOCAINE 4% LTA KIT (4 ML) TOPICAL ONE (07:25)
[2022-07-07] MEDS ORDERED: PROPOFOL 10 MG/ML 20 ML VIAL IV ONE (07:25)
[2022-07-07] MEDS ORDERED: TRANEXAMIC ACID IN NACL,ISO-OS 1,000 MG/100 ML BAG ONE (07:25)
[2022-07-07] MEDS ORDERED: MIDAZOLAM 2 MG/2 ML VIAL ONE (07:25)
[2022-07-07] MEDS ORDERED: LIDOCAINE 2% INJ 20 MG/ML (2 ML VIAL) ONE (07:25)
[2022-07-07] MEDS ORDERED: THROMBIN (BOVINE) 5,000 UNIT VIAL TOPICAL ONE (07:28)
[2022-07-07] MEDS ORDERED: GELATIN SPONGE,ABSORB (LARGE) 1 EACH SPONGE TOPICAL ONE (07:28)
[2022-07-07] MEDS ORDERED: LACTATED RINGERS 1,000 ML IV ONE (07:33)
--- NOTE | 2022-07-07 10:52 | P.PN ---
Progress Note - Text Progress Note Date: 07/07/22 History and Physical UPDATE I have seen and examined the patient and reviewed the history and physical. There appear to be no significant changes in the patient's current medical status as outlined in the current History and Physical.
--- NOTE | 2022-07-07 10:56 | FL ---
EXAMINATION TYPE: FL guidance operating room DATE OF EXAM: 07/07/2022 HISTORY: Fluoroscopy time 54 seconds of fluoroscopy provided. IMPRESSION: 1. Fluoroscopy time.
--- NOTE | 2022-07-07 10:57 | XR ---
EXAMINATION TYPE: XR cervical spine limited DATE OF EXAM: 07/07/2022 COMPARISON: NONE HISTORY: Postop TECHNIQUE: 11 intraoperative images submitted FINDINGS: Postsurgical changes noted. Exam limited by intraoperative technique and resolution. Sugges tion of an endotracheal tube. Radiopaque wiring seen posterior to the lower cervical spine. Some of t he images demonstrate hypertrophic degenerative changes spine with metallic overlying the mid to lowe r cervical spine likely part of a intraoperative localization. IMPRESSION: Intraoperative and postoperative images.
[2022-07-07] MEDS ORDERED: HYDROmorphone 1 MG/ML 1 ML SYRINGE IVP PRN (11:00)
[2022-07-07] MEDS ORDERED: HYDROcodone/APAP 5-325MG 1 EACH TAB PO PRN (11:00)
[2022-07-07] MEDS ORDERED: ONDANSETRON 4 MG/2 ML VIAL IVP PRN (11:00)
[2022-07-07] MEDS ORDERED: MAGNESIUM HYDROXIDE 2,400 MG/10 ML CUP PO PRN (11:00)
[2022-07-07] MEDS ORDERED: SENNOSIDES-DOCUSATE SODIUM 1 EACH TAB PO PRN (11:00)
[2022-07-07] MEDS ORDERED: CYCLOBENZAPRINE 5 MG TAB PO PRN (11:00)
[2022-07-07] MEDS ORDERED: diphenhydrAMINE 50 MG/ML 1 ML VIAL IVP ONE (12:22)
[2022-07-07] MEDS: ACETAMINOPHEN TAB 325 MG TAB PO SCH ×3 (16:28→23:32)
[2022-07-07] MEDS: HYDROcodone/APAP 7.5-325MG 1 EACH TAB PO PRN (16:34)
[2022-07-07] MEDS ORDERED: GABAPENTIN 300 MG CAP PO SCH (21:00)
[2022-07-08] MEDS: HYDROcodone/APAP 7.5-325MG 1 EACH TAB PO PRN (05:05)
--- NOTE | 2022-07-08 07:17 | CT ---
EXAMINATION TYPE: CT cervical spine wo con DATE OF EXAM: 07/08/2022 COMPARISON: 04/17/2022 HISTORY: post cervical fusion CT DLP: 404.1 mGycm CONTRAST: none CT of the cervical spine is performed in the axial plane at 2 mm thick sections. Reconstructed image s in the coronal, and sagittal plane are reviewed on the computer. No acute fractures are evident. Vertebral body alignment is normal. Disc heights are preserved. Disc spacers in place C4-5 C5-C6 C6-7. Anterior vertebral body cervical fusion is present through the C4-C7 levels. Vertebral body heights are preserved. No spinal canal stenosis is evident Some uncovertebral joint hypertrophy is present C3-4 level on the left with mild foraminal narrowing. Uncovertebral joint hypertrophy is present C5-6 with mild foraminal narrowing. Uncovertebral joint h ypertrophy is present on the left at C6-7 with moderate foraminal narrowing Postsurgical soft tissue air is present. IMPRESSIONS: 1. Interval anterior cervical fusion. 2. Chronic uncovertebral joint hypertrophy with foraminal narrowing greatest at the C 6/7 level.
[2022-07-08 07:45] VITALS: PULSE 85; RESP 18
[2022-07-08] MEDS: LACTATED RINGERS 1,000 ML IV SCH (07:46)
[2022-07-08] MEDS: ACETAMINOPHEN TAB 325 MG TAB PO SCH ×2 (07:46→12:09)
--- NOTE | 2022-07-08 08:48 | P.PN ---
Subjective Progress Note Date: 07/08/22 Principal diagnosis: Cervical Spondylosis Patient seen and examined at bedside. Patient states he did have a rough night due to pain and discomfort in the posterior cervical region. Medications will be reviewed. He notes that he is having some difficulty with swallowing, but tolerated breakfast well. He states he has been up and ambulate into restroom without difficulty. He denies any numbness tingling to bilateral upper extremities. Surgical dressing is clean dry and intact, FELIPE drain is patent with output of 80ml overnight. Informed patient we will be back this afternoon to assess drain output, if decreased patient may be discharged later today. Patient denies any fevers/chills, nausea/vomiting, or chest pain. Objective - Vital Signs Vital signs: Vital Signs Temp 97.9 F 07/08/22 07:44 Pulse 85 07/08/22 07:44 Resp 18 07/08/22 07:44 BP 114/63 07/08/22 07:44 Pulse Ox 95 07/08/22 07:44 FiO2 Intake & Output 07/07/22 07/08/22 07/08/22 18:59 06:59 18:59 Intake Total 2150 290 Output Total 250 50 Balance 1900 240 Weight 65.9 kg Intake: IV 2150 Intake, IV Titration 290 Amount Lactated Ringers 1,000 ml 240 @ 20 mls/hr IV .Q24H SANNA Rx#:[id number] ceFAZolin 2 gm In Sodium 50 Chloride 0.9% 50 ml @ 100 mls/hr IVPB Q8HR SANNA Rx# :[id number] Output: Drainage 10 50 Anterior Neck 10 50 Urine 190 Estimated Blood Loss 50 Other: # Voids 1 # Bowel Movements 0 - Exam Physical Examination General: The patient is awake and alert, in no acute distress Skin: Skin is warm and dry with no obvious rashes or lesions. Hairy patches absent, no dorsal skin dimples, no cafe au lait spots. Surgical incision to the anterior cervical region. FELIPE drain intact. Eye: Pupils are equal, round and reactive to light, extra-ocular movements are intact; there is normal conjunctiva bilaterally. Neck: The neck is supple, there is slight tenderness and ROM limited due to procedure. Cardiovascular: There is a regular rate and rhythm. No murmur, rub or gallop is appreciated. Respiratory: Lungs are clear to auscultation, respirations are non-labored, breath sounds are equal. Gastrointestinal: Soft, non-distended, non-tender abdomen . Back: There is no tenderness to palpation in the midline, paralumbar, parathoracic or buttocks region. There is no obvious deformity . Musculoskeletal: ROM limited secondary to pain and stiffness from surgical proc edure. Shoulder abduction 4/5, elbow flexors 4/5, wrist dorsiflexors 4/5. finger abductor 4/5, justowriter operator 4/5, hip flexor 5/5, knee flexor 5/5, ankle dorsiflexor 5/5, ankle plantarflexion 5/5 and extensor hallucis 5/5. Neurological: CN 2-12 intact. There are no obvious motor or sensory deficits. Movement and coordination equal and intact. Sensory exam to light touch intact C5-T1 and intact from L2-S1. Reflexes 2/4 in bilateral upper and lower extremities. Negative Hoffmans, babinski, and clonus signs. Psychiatric: Cooperative, appropriate mood & affect, normal judgment. Assessment and Plan Assessment: Postop day 1 anterior cervical discectomy and fusion C4-C7 Plan: Plan: -Appreciate consultant internship and team management. -Activity: Ambulate QID, OOB all meals, up and about, limit lifting bending twisting to less than 5 lbs. Use walker or cane if needed for stability. -Daily PT/OT, increase ambulation strength and balance. -Wear cervical collar until 2 week follow up. May take off to shower. -Pain control: Adequate at this time -Meds: reviewed -GI ppx: senna, Miralax -DVT PPX: OK to restart Heparin tonight -Hygiene: Shower today. Maintain dressing clean and dry. Meticulous cleaning after BMs away from the incision site -Drains: Maintain for now. DC later today pending out put and PT -Encourage IS 10x/hr -Dispo: Anticipate discharge home today or tomorrow. *I reviewed and discussed this case with my attending Dr. Mcclure, whom has reviewed this chart and films and is in agreement with assessment and plan of care as outlined above. I have personally seen and examined the patient, performed the documentation and the assessment and plan as written. Number of minutes spent on the visit: 20m.
[2022-07-08] MEDS ORDERED: HYDROcodone/APAP 10-325MG 1 EACH TAB PO PRN (08:51)
[2022-07-08] MEDS ORDERED: CYCLOBENZAPRINE 5 MG TAB PO SCH (09:00)
[2022-07-08] MEDS ORDERED: GABAPENTIN 300 MG CAP PO SCH (09:00)
[2022-07-08] MEDS ORDERED: NICOTINE 14MG/24HR PATCH TRANSDERM SCH (09:00)
--- NOTE | 2022-07-08 09:40 | P.OP ---
Date of Procedure: 07/07/22 Preoperative Diagnosis: 1. C4 to 7 spondylosis with stenosis 2. upper extremity radiculopathy 3. Upper extremity weakness 4. R and paresthesias Postoperative Diagnosis: 1. C4 to 7 spondylosis with stenosis 2. upper extremity radiculopathy 3. Upper extremity weakness 4. R and paresthesias Procedure(s) Performed: 1. Anterior right-sided Alonso-Herr approach to the cervical spine 2. C4-C5 anterior arthrodesis (73511) 3. C5-C6 anterior arthrodesis (09498) 4. C6-C7 anterior arthrodesis (37237) 5. C4-C5, C5-C6, C6-C7 insertion of biomechanical device (05340f2) 6. C4-C5, C5-C6, C6-C7 application of non-integrated anterior plate (51820a3) 7. Use of intraoperative microscope (83942) 8. Use of intraoperative neuro monitoring 9. Interpretation of intraoperative fluoroscopy less than 1 hour (66070) Implants: - choice spine [place] shark interbody cages 9 mm x 6 2 8 mm x 6 1 - [place] draining anterior plating system 14 mm 2; 13 mm 1 - autograft - for Anesthesia: GETA Surgeon: Jose Roberto Mcclure Diesel Engine I Pipe Fitter #1: Prasanna Ladd ( was present and assisted in all aspects of the case including positioning exposure arthrodesis closure and dressing application) Estimated Blood Loss (ml): 50 IV fluids (ml): 1,400 Urine output (ml): 300 Pathology: none sent Condition: stable Disposition: PACU Indications for Procedure: 61-year-old male who has been treated by the [facility] spine [place] for some time now with neck pain and upper extremity pain upper extremity weakness and paresthesias has gone through multiple different conservative treatments for his issues his MRI shows cervical spondylosis with stenosis. History of physical therapy home exercise program prescription medication [id number] medication topical medications quitting injections and none have alleviated his symptoms. We discussed at length different options for treatment and at this time the patient was elected to pursue surgical treatment for his issues. We discussed different surgical options and at this point if your cervical fusion was selected. We discussed risks and benefits at length as outlined at risk review. Patient was ready and willing to proceed with the procedure. Description of Procedure: The patient was seen and examined in the preoperative area. All preoperative protocols were followed. Informed consent was obtained risks and benefits of the procedure were discussed at length. Risks including bleeding infection damage to the surrounding tissue and risk of reoperation were discussed with the patient. Risk of anesthesia up to and including was a discussed with the patient. These are outlined in the risk review. They were willing to accept these risks and all of the risks of surgery. The patient was given a weight- based dose of antibiotics in the form of 2 g Ancef. The patient was seen and evaluated by the anesthesia team who deemed them fit for surgery. The site was marked, the patient was willing to proceed with the procedure. The patient was transferred to the operative suite by the Department of anesthesia. They were then drifted off to sleep by the department anesthesia and GETA was performed. The patient tolerated this well. [Julio catheter was placed by nursing staff, atraumatically]. Once confirmation of lines and ventilation the patient was transferred to a [prone Cristian table very carefully]. All bony prominences including wrists, elbows, axilla, chest, hips, and thighs, and feet were padded very well. Special attention was paid to the genitalia and these were padded accordingly. SCDs were placed on bilateral lower extremities and were connected. Arms were well padded and placed tucked at the patient's side well-padded. Shoulders were then gently taped to the table. Once in position, again we confirmed good ventilation capabilities and that lines were running appropriately. The patient's anterior cervical spine was then exposed. 1010s were placed outlining the incision site. Standard alcohol was used to clean the incision site and allowed to dry. C-arm was used to biomark the patient and confirm level for incision which was marked with a skin marker. Operative briefing was performed with all teams and everyone in agreement to proceed. The patient was then prepped and draped in a normal sterile fashion. Timeout was then performed and all parties were in agreement with the procedure to be performed. transverse skin incision was then made 4 cm over the previously bowel marked area on the right-hand side and a standard Alonso-Herr approach to the neck. Platysma layer was split in line with its fibers. Interval was exploited between the SCM and medial structures. Omohyoid was identified and gently mobilized. Central structures gently mobilized and so anterior cervical spine was reached. Blunt probe was then used to confirm levels under lateral fluoroscopic guidance once levels confirmed longissimus muscles were identified and elevated bilaterally subperiosteally. Anterior osteophytes were then removed using Kerrison and rongeur. This allowed for placement of retractor retractor was then placed under the longissimus muscles. Starting at the most difficult level at C4-C5 [place] pins were placed into C4 using lateral fluoroscopic guidance as well as C5. The disc was relieved with a Norm rounder and the distractor was placed and careful distraction was taken across the disc space. The operating microscope was then brought in for visualization complete discectomy was performed anteriorly using curettes as well as Kerrison rongeur. motors were run and they were stable.high-speed bur was then used to jonathan osteophytes anteriorly and posteriorly at C4-C5 pillow was identified and resected using 6 up-biting curette as well as 2 Kerrison bilateral foraminotomies was then performed. Meticulous hemostasis performed complete decompression confirmed disc space was then irrigated and endplates were confirmed to be clear we then sized for the appropriate sized spacer under lateral fluoroscopy. We then placed the final implant which was packed with autograft and bio 4 into position. AP confirmed central location. motors were run and were stable We then removed distraction and the pin was removed from C4 and bone wax placed and supported then selected a plate and sized it and the plate was then placed under lateral fluoroscopic guidance first by drilling the holes for the screws and then placing screws. The anterior locking mechanism was engaged and the plate was stable. We then turned our attention to the C5-C6 disc space distractor pin was placed in C6 under lateral fluoroscopic guidance and the disc space was resected using a Lempert rongeur careful distraction was then taken across the disc space. We then repeated the discectomy at C5-C6 removing anterior and posterior osteophytes with high-speed bur resecting PLL decompressing bilateral foramens. Jig is hemostasis performed with an sized for the appropriate sized spacer under lateral fluoroscopic guidance we then selected the final implant implant was packed and then impacted into place confirming good placement on AP and lateral films. We then sized and selected a plate for the area the plate holes were then drilled under lateral fluoroscopic guidance and then the plate was secured with screws. Anterior locking mechanism was engaged. We then irrigated the wound. motors were run and were stable. We then turned our attention to the C6-C7 disc space retractors were replaced we removed the John Day pin from C5 bone wax was placed into void and replaced in the C7 under lateral fluoroscopic guidance. We then removed disc material with Rui and careful distraction taken across the disc space. Anterior discectomy complete discectomy performed with high-speed bur as well as curettes. PLL identified and resected bilateral foraminotomies performed complete decompression of neural elements confirmed. Meticulous hemostasis performed. Disc space was irrigated and then spacers were trialed once appropriate size was obtained and this was then selected and impacted into place under lateral fluoroscopic guidance confirmed to be in good position in AP. Motors were run stable. A plate was then selected and sized it was then placed anteriorly screw holes were drilled and screws placed under lateral fluoroscopic guidance. We then irrigated the wound thoroughly with normal sterile saline and inspected each plate all locking mechanisms were engaged all screws in place. Meticulous hemostasis performed. Final AP and lateral imaging confirmed good placement of hardware as well as good reduction and decompression. We then again irrigated the wound we placed Surgicel deep within the wound inspected the area there is no injuries to drain was placed deep within the room wound and sewed in position. We then performed layered closure first in the platysmal fascia with 0 Vicryl in an subcu tissue with 3-0 Vicryl and subcuticular with 4-0 strata fix skin was then cleaned and dressed with skin glue and allowed to dry and then dressed with a sterile op to foam dressing. The patient was transferred back to their hospital bed atraumatically. Drain continued to hold suction and were in good position. Patient was then awakened and extubated by the department of anesthesia having tolerated the procedure very well with no complications. They were transferred to the postoperative care unit in stable condition.
[2022-07-08 11:11] LABS: Basophils # (A) 0.03 X 10*3/uL (0.00-0.10); Basophils % (A) 0.2 %; Eosinophils # (A) 0.01 X 10*3/uL (0.04-0.35); Eosinophils % (A) 0.1 %; HGB 12.2 g/dL (13.0-17.0); Immature Grans, Automated 0.4 %; Lymphocytes # (A) 1.98 X 10*3/uL (0.90-5.00); Lymphocytes % (A) 14.7 %; MCH 36.3 pg (27.0-32.0); MCHC 33.9 g/dL (32.0-37.0); MCV 107.1 fL (80.0-97.0); Mean Platelet Volume 9.2 fL (9.5-12.2); Monocytes # (A) 1.14 X 10*3/uL (0.20-1.00); Monocytes % (A) 8.5 %; NRBC Per 100 WBC 0 /100 WBCS (0.0-0.0); Neutrophils # (A) 10.25 X 10*3/uL (1.80-7.70); Neutrophils % (A) 76.1 %; Platelet Count 181 X 10*3/uL (140-440); RBC 3.36 X 10*6/uL (4.40-5.60); RDW 12.2 % (11.5-14.5); WBC 13.47 X 10*3/uL (4.50-10.00)
--- NOTE | 2022-07-08 13:41 | P.DS ---
Providers Date of admission: 07/07/22 05:49 Expected date of discharge: 07/08/22 Attending physician: Jose Roberto Mcclure DO Consults: 07/07/22 11:04 Consult Physician Routine Consulting Provider: Carmita Vásquez Reason/Comments: Medical Management Do you want consulting provider notified?: Yes Primary care physician: Anita Simmons [facility] Course: Hospital Course: The patient was evaluated preoperatively and found to have the diagnosis of Cervical spondylosis. They underwent appropriate preoperative care and were willing to undergo the intended procedure. They underwent a successful Anterior cervical C4-C5, C6-C7 discectomy and fusion, were recovered appropriately and sent to the floor. While on the floor they worked with physical therapy, occupational therapy and nursing to enhance their recovery experience. Their pain was well controlled through their stay and they were started on appropriate medications, DVT ppx modalities, activity and dietary needs. Daily labs were monitored closely, and transfusions were only used when necessary. Medicine as well as other consulting services have made their input and have helped with our team approach and multidisciplinary care. PT milestones have been met and passed and they have made the recommendation of home for this patient and treating providers agree with this care path. The patient will be discharged home with appropriate medications, instructions and follow-up information and in stable condition. Patient Condition at Discharge: Good Plan - Discharge Summary Discharge Rx Participant: No New Discharge Prescriptions: New cefaDROXiL [Duricef] 500 mg PO Q12HR 3 Days #6 cap Cyclobenzaprine [Flexeril] 5 mg PO TID #90 tablet Gabapentin 300 mg PO TID #90 cap HYDROcodone/APAP 10-325MG [[place] 10-325] 1 tab PO Q6HR PRN #56 tab PRN Reason: Pain No Action Ibuprofen 800 mg PO Q8H PRN PRN Reason: Pain Nicorette Gum (Dose Unknown) 1 piece gum PO DIRECTED PRN PRN Reason: Nicotine Cravings Discharge Medication List Ibuprofen 800 mg PO Q8H PRN 07/03/22 [History] Nicorette Gum (Dose Unknown) 1 piece gum PO DIRECTED PRN 07/03/22 [History] Cyclobenzaprine [Flexeril] 5 mg PO TID #90 tablet 07/08/22 [Rx] Gabapentin 300 mg PO TID #90 cap 07/08/22 [Rx] HYDROcodone/APAP 10-325MG [[place] 10-325] 1 tab PO Q6HR PRN #56 tab 07/08/22 [Rx] cefaDROXiL [Duricef] 500 mg PO Q12HR 3 Days #6 cap 07/08/22 [Rx] Follow up Appointment(s)/Referral(s): Jose Roberto Mcclure DO [Doctor of Osteopathic Medicine] - 1 Week Activity/Diet/Wound Care/Special Instructions: Spine Discharge and Recovery Instructions Date of Surgery: 07/07/22 Diagnosis: Cervical Spondylosis Procedure: Anterior Cervical C4-C5, C6-C7 discectomy and fusion Medications: See medication list All medication refills should be obtained through your primary care doctor or your clinic spine surgeon. Please discuss prescription refills at your follow up appointment. Do not call the hospital for medication refills. Dressing: Leave your dressing in place for a total of 5 days post operatively. Then you may remove your dressing and leave open to air. Keep the area clean and if not able to keep area clean, then cover with sterile gauze and tape. Showering: You may shower 3 days after your procedure allowing soap and water to run over incision. Do not scrub. Do not soak. Blot dry. Follow up: Please confirm a follow up appointment with your surgeon 3 weeks post operatively. Please make an appointment to follow up with your PCP in 1-2 weeks after surgery for evaluation 3 phase, 3-week plan POST OP WEEKS 1-3 1. Lifting/carrying/pushing/pulling limited to less than 5 pounds. 2. Do not sit for longer than 15 minutes at one time. Get up and walk around. Prolonged sitting is NOT advised. If you lay down, see if you can tolerate laying down on you front (belly side) 3. Walk for periods of 15 minutes = 1 mile but no longer; do it multiple times times each day. 4. Ice your low back after activity. POST OP WEEKS 3-6 1. Lifting limited to less than 20 pounds. 2. Do not sit for longer than 30 minutes at a time. Frequently change positions. Use a sit-to stand workstation or take frequent breaks from sitting if you have returned to work. 3. Walk for 30 minutes each day. If possible, do these three or more times a day POST OP WEEKS 6+ At your 6-week appointment we will give you a physical therapy referral to focus on a core stabilization and strengthening program. You should also work on leg & buttock strengthening, hamstring & quadriceps stretching, and continue a low impact aerobic activity program such as swimming, walking, or riding a stationary bicycle. During the initial 6 weeks after your surgery, you are at the highest risk of re-injuring your spine. You should generally avoid BLTs (bending, lifting and twisting combination motions) and follow the above guidelines to reduce the chance of reinjury. You can anticipate post op appointments in our office at approximately 3 weeks and 6 weeks after your surgery. INCISION CARE: If your incision is not draining you do NOT need to cover it with a dressing. Keep your incision clean, dry and intact. In most cases, we apply skin glue, jarrod or sutures to the incision at the time of surgery. This will be like a crust or have the appearance of a scab and will fall off in time on its own. The stitches or jarrod need to be removed at 3 weeks post op appointment. You may begin to shower 3 days after surgery (this allows the glue to tyler well). However, please avoid scrubbing the incision site or peeling off any of the skin glue. This will ensure optimal healing of your incision. Also, during this time avoid soaking the incision area in water - this includes swimming pools, hot tubs or baths. No ointments, lotions or oils on the incision until your surgeon allows. Leave jarrod, sutures or glue in place. Neurological dysfunction that comes on suddenly can also be a sign of a stroke. Below some common symptoms of a stroke are listed: B - balance difficulty such as sudden onset walking or leaning to one side - NEW E - eye problem such as sudden double vision or trouble seeing on one side - NEW F - Facial weakness or numbness on one side - NEW A - Arm or leg weakness or numbness on one side - NEW S - Slurred speech or difficulty with word finding - NEW T - Time is BRAIN! Call 911 as soon as you recognize these symptoms Diet: Consume a regular diet rich in vegetables and lean protein such as chicken or fish. You should consume in a ratio of approximately 20% fats|40% carbohydrates|40%protein. Vegetables, sweet potatoes, brown rice or quinoa are examples of good carbohydrates. Chips, white bread, cookies and sweets/sugar are examples of bad carbohydrates. Limit your bad carbs, go wild with good carbs. 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 (1) Get Active. Physical activity can help people lose weight, control high blood pressure and cholesterol, feel emotionally better, and sleep better. (2) Control Cholesterol. Avoid a diet high in saturated fat, trans fat, & cholesterol. Limit whole milk & cream, ice cream, butter, egg yolks, processed meats (like sausage and hot dogs), and fatty meats. Choose healthy foods that are low in saturated fat, trans fat and cholesterol which include: Fruits and vegetables, fiber rich grain products (like whole grain pasta and brown rice), lean meat such as chicken, fish, nuts, seeds, and legumes. (3) Eat Better. Eat small portions. Shop at the grocery with a list and do not stray from it. Tips for a healthy diet include: Limit sodium intake to less than 1500mg daily, avoid prepackaged, processed, and fast foods, choose a diet rich in fruits, vegetables, and whole grain, high fiber foods, and limit saturated & cholesterol in your diet. (4) Manage Blood Pressure. If you have high blood pressure, you should have a cuff at home so that you can check your blood pressure regularly. Be sure you have a good cuff. An arm one is generally better than a wrist one. Bring the cuff to a doctor's appointment to validate that the measurements that your cuff are taking are accurate. Take your blood pressure twice daily when you are sitting down and relaxing. Record the numbers in a log and bring this log with you to your doctors' appointments. (5) Lose Weight if your BMI is above 25. A healthy BMI is between 19-25. To calculate Your BMI, you may use a Standard BMI Calculator on the NIH BMI website: <www.nhlbi.nih.gov/guidelines/obesity/BMI/bmicalc.htm>. Weigh oneself daily. If you are overweight, set a goal to lose weight. A pound a week loss if needed is a good target. (6) Reduce Blood Sugar. Limit foods and liquids with "added sugars." (Added sugars include sucrose, fructose, glucose, maltose, dextrose, high fructose corn syrup, corn syrup, concentrated fruit juice and honey). (7) Stop Smoking. If you smoke, quitting smoking is one of the best things that you can do for your health. Smoking increases your risk of heart attack, stroke, and peripheral vascular disease, which is a build-up of plaque in your arteries. Please discard all the cigarettes and lighters in your house. Have a plan for what you will do when you have the urge to smoke. Direct and second- hand smoke shortens your life as well as the lives of your family, friends and others around you. For your health and the health of those around you, please consider quitting! Proper Bending Body Mechanics: Maintain a wide stance with one foot slightly in front of the other. Keep your back straight. Bend utilizing the strength in your hips and knees. Do not bend at the waist. Maintain the lifted object at your waist-level close to your body. Avoid lifting weight that causes immediately pain or pain anywhere in the body afterwards. Smoking/Nicotine If there was ever one thing that you could do to increase your overall health, decrease your risk of cardiovascular problems by about 39% the second you make the choice, it is to STOP SMOKING. Your body's most instant gratification is the second you stop smoking. We have all heard the studies, read the articles but it is true, smoking is extremely bad for your overall health, and moreover it is detrimental to your bone health. Nicotine, IN ANY FORM, kills bone cells, prevents your body from healing fractures, and significantly prolongs healing after surgery. In spine surgery specifically, it increases your risk of not healing your bones to create a fusion and increases your risk of having a revision surgery due to this up to 60%. I know it is hard. I know it feels impossible. But there are ways. Take control of your life. We are here to help you through it. And when you are ready, ask us and we can direct you to help if you desire. Use the START Plan to Quit Smoking (please visit the Helpguide.org website listed below for more information): S = Set a quit date. Choose a date within the next 2 weeks, so you have enough time to prepare without losing your motivation to quit. If you mainly smoke at work, quit on the weekend, so you have a few days to adjust to the change. T = Tell family, friends, and co-workers that you plan to quit. Let your friends and family in on your plan to quit smoking and tell them you need their support and encouragement to stop. Look for a quit ruddy who wants to stop smoking as well. You can help each other get through the rough times. A = Anticipate and plan for the challenges you'll face while quitting. Most people who begin smoking again do so within the first 3 months. You can help yourself make it through by preparing ahead for common challenges, such as nicotine withdrawal and cigarette cravings. R = Remove cigarettes and other tobacco products from your home, car, and work. Throw away all your cigarettes (no emergency pack!), lighters, ashtrays, and matches. Wash your clothes and freshen up anything that smells like smoke. Shampoo your car, clean your drapes and carpet, and steam your furniture. T = Talk to your doctor about getting help to quit. Your doctor can prescribe medication to help with withdrawal and suggest other alternatives. If you can't see a doctor, you can get many products over the counter at your local pharmacy or grocery store, including the nicotine patch, nicotine lozenges, and nicotine gum. Resources for Quitting Smoking: <https://www.[place].gov/documents/[facility]/Quit_Tobacco_Resources_for_patients_313 480_7.pdf> Supplementation: Take recommended dosages of Vitamin D and Calcium to help fortify your bones and help them to heal. See your health maintenance packet for dosages and r ecommended levels. DVT/VTE prophylaxis: You will be given compression stockings from the hospital. Wear these daily for the first two weeks after surgery. You may take them off at night. You may be prescribed a medication to help thin your blood. Take this as directed. If you are not prescribed this medication, early and frequent ambulation has been shown to be the best prophylaxis to deep vein thrombosis and sequelae related to this event. Discharge Disposition: HOME SELF-CARE
[2022-07-08 13:45] VITALS: BP 117/67; TEMP 98.5
--- NOTE | 2022-07-08 18:42 | P.CONS ---
History of Present Illness - History of Present Illness This is a pleasant 7 years old male with past medical history of osteoarthritis, COPD, was admitted under orthopedic team service for his cervical spondylosis. Patient underwent Anterior Cervical C4-C5, C6-C7 discectomy and fusion. Today is postoperative day #1. Patient is lying in bed comfortable feels thirsty, he has no dentures. He is fully awake and oriented, he was talking to his in the phone, he denies any specific complaint of weakness or numbness. Patient states improvement. Patient is hemodynamically stable. Labs are reviewed he has WBC of 13.4, hemoglobin 12.2. Cervical CT showing interval anteromedial cervical fusion with chronic degenerative joint disease. Review of Systems Review of systems CONSTITUTIONAL: No fever, no malaise, no fatigue. HEENT: No recent visual problems or hearing problems. Denied any sore throat. CARDIOVASCULAR: No orthopnea, PND, no palpitations, no syncope. PULMONARY: No shortness of breath, no cough, no hemoptysis. GASTROINTESTINAL: No diarrhea, no nausea, no vomiting, no abdominal pain. Normoactive bowel sounds. NEUROLOGICAL: No headaches, no weakness, no numbness. HEMATOLOGICAL: Denies any bleeding or petechiae. GENITOURINARY: Denies any burning micturition, frequency, or urgency. MUSCULOSKELETAL/RHEUMATOLOGICAL: Denies any joint pain, swelling, or any muscle pain. Except what is mentioned above ENDOCRINE: Denies any polyuria or polydipsia. Past Medical History Past Medical History: COPD, Osteoarthritis (OA), Pneumonia Additional Past Medical History / Comment(s): diverticulitis, hx bronchitis, herniated disk, degenerative disk disease History of Any Multi-Drug Resistant Organisms: None Reported Past Surgical History: Joint Replacement Additional Past Surgical History / Comment(s): Right hip replacement, left knee replacement, vasectomy, colonoscopy., left knee arthroscopy Past Anesthesia/Blood Transfusion Reactions: No Reported Reaction Smoking Status: Former smoker - Past Family History Father Family Medical History: Cancer Additional Family Medical History / Comment(s): LUNG AND STOMACH CANCER Daughter(s) Family Medical History: Cancer Additional Family Medical History / Comment(s): Hodgkins Mother Family Medical History: Cancer Additional Family Medical History / Comment(s): LUNG CANCER. Medications and Allergies Home Medications Medication Instructions Recorded Confirmed Type Ibuprofen 800 mg PO Q8H PRN 07/03/22 07/03/22 History Nicorette Gum (Dose Unknown) 1 piece gum PO DIRECTED PRN 07/03/22 07/07/22 History Cyclobenzaprine [Flexeril] 5 mg PO TID #90 tablet 07/08/22 Rx Gabapentin 300 mg PO TID #90 cap 07/08/22 Rx HYDROcodone/APAP 10-325MG [[place] 1 tab PO Q6HR PRN #56 tab 07/08/22 Rx 10-325] cefaDROXiL [Duricef] 500 mg PO Q12HR 3 Days #6 cap 07/08/22 Rx Allergies Allergy/AdvReac Type Severity Reaction Status Date / Time No Known Allergies Allergy Verified 07/03/22 14:07 Physical Exam Vitals: Vital Signs Temp Pulse Pulse Resp BP Pulse Ox 07/08/22 07:44 97.9 F 85 18 114/63 95 07/08/22 01:41 98.3 F 78 17 128/67 95 07/07/22 20:00 73 85 18 07/07/22 19:53 98 F 85 18 122/62 93 L 07/07/22 16:20 97.7 F 90 18 132/69 96 07/07/22 15:30 73 16 121/78 97 07/07/22 14:30 69 16 126/70 100 07/07/22 14:00 49 L 16 145/65 99 07/07/22 13:45 51 L 16 137/75 99 07/07/22 13:30 62 16 128/60 99 07/07/22 13:15 56 L 16 128/60 99 07/07/22 13:00 48 L 16 120/58 99 07/07/22 12:50 73 16 138/65 98 07/07/22 12:30 54 L 16 111/61 96 07/07/22 12:15 47 L 16 107/55 99 07/07/22 12:10 63 16 122/56 99 07/07/22 11:55 64 16 143/81 100 07/07/22 11:40 72 16 143/79 97 07/07/22 11:25 66 16 115/65 100 Intake and Output 07/07/22 07/08/22 07/08/22 22:59 06:59 14:59 Intake Total 300 290 296 Output Total 20 40 20 Balance 280 250 276 Intake: IV 300 Intake, IV Titration 290 Amount Lactated Ringers 1,000 ml 240 @ 20 mls/hr IV .Q24H SANNA Rx#:[id number] ceFAZolin 2 gm In Sodium 50 Chloride 0.9% 50 ml @ 100 mls/hr IVPB Q8HR SANNA Rx# :[id number] Oral 296 Output: Drainage 20 40 20 Anterior Neck 20 40 20 Other: # Voids 1 2 # Bowel Movements 0 0 Weight 65.9 kg GENERAL: The patient is alert and oriented x3, not in any acute distress. Well developed, well nourished. HEENT: Pupils are round and equally reacting to light. EOMI. No scleral icterus. No conjunctival pallor. Normocephalic, atraumatic. No pharyngeal erythema. No thyromegaly. CARDIOVASCULAR: S1 and S2 present. No murmurs, rubs, or gallops. PULMONARY: Chest is clear to auscultation, no wheezing or crackles. ABDOMEN: Soft, nontender, nondistended, normoactive bowel sounds. No palpable organomegaly. MUSCULOSKELETAL: No joint swelling or deformity. Cervical spine wound with dressing in a Place, rest of exam is deferred to surgery team EXTREMITIES: No cyanosis, clubbing, or pedal edema. NEUROLOGICAL: Gross neurological examination did not reveal any focal deficits. SKIN: No rashes. no petechiae. Results CBC & Chem 7: 07/08/22 06:33 Labs: Abnormal Lab Results - Last 24 Hours (Table) 07/08/22 Range/Units 06:33 WBC 13.47 H (4.50-10.00) X 10*3/uL RBC 3.36 L (4.40-5.60) X 10*6/uL Hgb 12.2 L (13.0-17.0) g/dL Hct 36.0 L (39.6-50.0) % MCV 107.1 H (80.0-97.0) fL MCH 36.3 H (27.0-32.0) pg MPV 9.2 L (9.5-12.2) fL Immature Gran # 0.06 H (0.00-0.04) X 10*3/uL Neutrophils # 10.25 H (1.80-7.70) X 10*3/uL Monocytes # 1.14 H (0.20-1.00) X 10*3/uL Eosinophils # 0.01 L (0.04-0.35) X 10*3/uL Assessment and Plan Assessment: Cervical spondylosis status post anterior Cervical C4-C5, C6-C7 discectomy and f usion. Hypertension COPD, not an active issue History of osteoarthritis Plan: This is a pleasant 61 years old male who presents for his cervical spondylosis status post fusion and discectomy Continue with postop care per primary team Continue with pain management and DVT prophylaxis per primary team Glucose controlled Patient tolerated that well Patient denies specific weakness Continue with DVT prophylaxis as per surgery team Patient was instructed to follow up with PCP in one week after discharge and he agrees. Patient has contact information Thank you for consulting us
== END 2022-07-08 14:31 | disposition home or self-care (01) | DRG 472 ==
LOC: 2ORMAIN 05:49 → 4SSUR 15:46
PROVIDERS: ADMIT Orthopaedic Surgery; ATTEND Orthopaedic Surgery
PROC: 0RG20A0 Fusion of 2 or more Cervical Vertebral Joints with Interbody Fusion Device, Anterior Approach, Anterior Column, Open Approach (ICD-10-PCS; 2022-07-07)
PROC: 01N10ZZ Release Cervical Nerve, Open Approach (ICD-10-PCS; 2022-07-07)
PROC: 4A11X4G Monitoring of Peripheral Nervous Electrical Activity, Intraoperative, External Approach (ICD-10-PCS; 2022-07-07)
PROC: 0RG2070 Fusion of 2 or more Cervical Vertebral Joints with Autologous Tissue Substitute, Anterior Approach, Anterior Column, Open Approach (ICD-10-PCS; principal; 2022-07-07 07:30)
DX: M47.22 Other spondylosis with radiculopathy, cervical region (principal); M48.52XA Collapsed vertebra, not elsewhere classified, cervical region, initial encounter for fracture; I10 Essential (primary) hypertension; J44.9 Chronic obstructive pulmonary disease, unspecified; R53.81 Other malaise; G47.8 Other sleep disorders; R13.10 Dysphagia, unspecified; M25.78 Osteophyte, vertebrae; M43.12 Spondylolisthesis, cervical region; M48.02 Spinal stenosis, cervical region; Z96.652 Presence of left artificial knee joint; Z96.641 Presence of right artificial hip joint; Z87.01 Personal history of pneumonia (recurrent); Z87.19 Personal history of other diseases of the digestive system; Z98.52 Vasectomy status; Z98.890 Other specified postprocedural states; Z80.0 Family history of malignant neoplasm of digestive organs; Z80.7 Family history of other malignant neoplasms of lymphoid, hematopoietic and related tissues; Z80.1 Family history of malignant neoplasm of trachea, bronchus and lung; Z87.891 Personal history of nicotine dependence; Z79.899 Other long term (current) drug therapy; Z79.891 Long term (current) use of opiate analgesic
CPT/HCPCS: 72040; 72125; 85025; 86850; 86900; 86901

== ENCOUNTER → 2023-06-29 | Outpatient (CLI) | payer BC, MEDICARE ==
--- NOTE | 2023-06-29 14:24 | CTL ---
EXAMINATION TYPE: CT Low Dose Lung DATE OF EXAM ORDERED: 06/29/2023 HISTORY: J44.9 CHRONIC OBSTRUCTIVE PULMONARY DISEASE, UNSPE. Lung cancer screening CT DLP: 71.[address] CTDI: 1.8 mGy Automated exposure control for dose reduction was used. SCREENING VISIT: First screening visit COMPARISON: Chest radiograph 06/26/2022 TECHNIQUE: Low dose computed tomography scan was performed through the chest at 1 mm thick sections a nd reconstructed images in multiple planes at 1 mm and [address] DIAGNOSTIC QUALITY: Satisfactory FINDINGS: LUNG NODULES: No clinically significant pulmonary nodules. LUNGS: COPD: Severity: Mild Fibrosis: Severity: None Lymph nodes: None Other findings: None RIGHT PLEURAL SPACE: Effusion: None Calcification: None Thickening: None Pneumothorax: None LEFT PLEURAL SPACE: Effusion: None Calcification: None Thickening: None Pneumothorax: None HEART: Heart Size: Normal Coronary Calcification: None Pericardial Effusion: None OTHER FINDINGS: Upper abdomen: None Bony thorax: No acute osseous abnormality. Mild to moderate degenerative changes of the thoracic spin e. Anterior cervical fusion hardware. Supraclavicular region: None Other: None IMPRESSION: 1. No clinically significant pulmonary nodules. 2. Mild COPD changes. CT LUNG RAD AND CT CHEST RECOMMENDATION: Lung-Rad 1 Negative: Continue annual screening with LDCT in 12 months. S Modifier (other clinically significant findings): None
== END | disposition home or self-care (01) ==
LOC: RADCTMAIN 13:23
PROVIDERS: ATTEND Family Medicine
DX: Z12.2 Encounter for screening for malignant neoplasm of respiratory organs (principal); J44.9 Chronic obstructive pulmonary disease, unspecified
CPT/HCPCS: 71271; 94060; 94726; 94729

== ENCOUNTER → 2024-07-24 | Outpatient (CLI) | payer MEDICARE ==
--- NOTE | 2024-07-24 10:16 | CTL ---
EXAMINATION TYPE: CT Low Dose Lung DATE OF EXAM ORDERED: 07/24/2024 HISTORY: 63-year-old male current smoker with 50 pack-year history. Z12.2 LUNG CA SCR F17.210 CURREN T SMOKER. Lung cancer screening CT DLP: 79.[address] CTDI: 1.9 mGy Automated exposure control for dose reduction was used. SCREENING VISIT: Annual follow-up COMPARISON: 06/29/2023 TECHNIQUE: Low dose computed tomography scan was performed through the chest at 1 mm thick sections a nd reconstructed images in multiple planes at 1 mm and [address] DIAGNOSTIC QUALITY: Satisfactory FINDINGS: The heart is normal size without pericardial effusion. Aorta normal caliber with minimal atherosclerotic arch calcifications and conventional arch vessel br anching anatomy. Lower descending thoracic aorta ectatic and 2.7 cm. No thoracic lymphadenopathy by CT size criteria. Mild to moderate diffuse bronchial wall thickening. Moderate emphysematous change, prominent in the u pper lungs with biapical pleural parenchymal scarring. Some additional strandy scarring at the edger runner ior left lung base. No consolidation or pleural effusion. A few, small 4 mm pulmonary nodules at the right lower lung, 3 of which are located along the major f issure suggesting small intrafissural lymph nodes are all unchanged. 4 mm pulmonary nodule lateral right midlung, axial image 166 is unchanged. 4 mm right upper lobe pulmonary nodule, axial image 107 is unchanged. No new suspicious pulmonary nodule is identified. Visualized upper abdomen shows no gross abnormality. Bones: Moderate to severe degenerative disc disease mid to lower thoracic spine. Partially visualized ACDF hardware. IMPRESSION: 1. LungRADS 2, benign. Scattered 4 mm pulmonary nodules which remain unchanged. 2. COPD with moderate emphysema, most severe in the upper lungs with biapical pleural-parenchymal sca rring. Recommend smoking cessation. CT LUNG RAD AND CT CHEST RECOMMENDATION: Lung-Rad 2 Benign Appearance or Behavior: Continue annual sc reening with LDCT in 12 months. S Modifier (other clinically significant findings): None [facility], , 07/24/2024 10:13 AM
== END | disposition home or self-care (01) ==
LOC: RADCTMAIN 09:30
PROVIDERS: ATTEND Family Medicine
DX: Z12.2 Encounter for screening for malignant neoplasm of respiratory organs (principal); F17.210 Nicotine dependence, cigarettes, uncomplicated; J43.9 Emphysema, unspecified; J44.9 Chronic obstructive pulmonary disease, unspecified; R91.8 Other nonspecific abnormal finding of lung field
CPT/HCPCS: 71271